=== PATIENT | female | born 1935 | race Caucasian/White ===

== ENCOUNTER 2021-07-10 15:42 | Inpatient (IN) | payer MEDICARE, BC ==
[2021-07-10] MEDS ORDERED: SODIUM CHLORIDE 0.9% 1,000 ML IV STA (16:08)
--- NOTE | 2021-07-10 16:16 | ED ---
General Adult HPI - General Chief complaint: Altered Mental Status Stated complaint: Dehydration Time Seen by Provider: 07/10/21 15:57 Source: patient, EMS, RN notes reviewed Mode of arrival: EMS Limitations: altered mental status - History of Present Illness Initial comments: This is a pleasant 85-year-old female who arrives via EMS. Patient essentially alert and oriented 1. Apparently the patient's son is in the ICU with COVID- 19. Patient was sent in by family for possible dehydration, general weakness, and altered mental status. Patient not complaining of any pain but tells me she did fall. Patient's paperwork stating that she was started on doxycycline and Mucinex by the visiting physicians. There also was a COVID-19 test done. [facility] if results have been obtained. According to EMS the patient had a initial oxygen saturation 91% on room air. Review of systems Limited due to patient being alert and oriented 1. Denies pain, denies shortness of breath, unsure whether she's been vaccinated against COVID-19. Patient is anticoagulation. - Related Data Home Medications Medication Instructions Recorded Confirmed Apixaban [Eliquis] 2.5 mg PO BID 07/10/21 07/10/21 Ascorbic Acid [Vitamin C] 250 mg PO DAILY 07/10/21 07/10/21 Aspirin EC [Ecotrin Low Dose] 81 mg PO DAILY 07/10/21 07/10/21 Calcium Carbonate/Vitamin D3 1 tab PO DAILY 07/10/21 07/10/21 [Calcium 600-D3 20 mcg (800 Unit)] Cholecalciferol [Vitamin D3 (25 50 mcg PO DAILY 07/10/21 07/10/21 Mcg = 1000 Iu)] Citalopram Hydrobromide [CeleXA] 20 mg PO DAILY 07/10/21 07/10/21 Cranberry Fruit Extract [Cranberry] 500 mg PO DAILY 07/10/21 07/10/21 Cyanocobalamin (Vitamin B-12) 1,000 mcg PO DAILY 07/10/21 07/10/21 [Vitamin B-12] Diltiazem Cd [Cardizem CD] 240 mg PO DAILY 07/10/21 07/10/21 Doxycycline Hyclate 100 mg PO BID 07/10/21 07/10/21 Furosemide [Lasix] 40 mg PO DAILY 07/10/21 07/10/21 Memantine [Namenda] 10 mg PO BID 07/10/21 07/10/21 Nystatin 100,000 Unit/gm Powd 1 applic TOPICAL BID 07/10/21 07/10/21 [Mycostatin Powder] Zinc 50 mg PO DAILY 07/10/21 07/10/21 Allergies Allergy/AdvReac Type Severity Reaction Status Date / Time No Known Allergies Allergy Verified 07/10/21 19:27 Review of Systems ROS Statement: Those systems with pertinent positive or pertinent negative responses have been documented in the HPI. ROS Other: All systems not noted in ROS Statement are negative. Past Medical History Past Medical History: Atrial Fibrillation Additional Past Medical History / Comment(s): buttock wound History of Any Multi-Drug Resistant Organisms: None Reported Past Psychological History: No Psychological Hx Reported Smoking Status: Unknown if ever smoked Past Alcohol Use History: None Reported Past Drug Use History: None Reported - Past Family History Father Family Medical History: Unable to Obtain Mother Family Medical History: Unable to Obtain General Exam - General Exam Comments Initial Comments: Deconditioned appearing 85-year-old female in no acute distress. Patient does not appear to be toxic. Alert and oriented 1. Creatinine is 2 through 12 are grossly intact. No evidence of focal neurologic deficit. Limitations: altered mental status General appearance: alert, in no apparent distress Head exam: Present: atraumatic, normocephalic, normal inspection Eye exam: Present: normal appearance, PERRL, EOMI. Absent: scleral icterus, conjunctival injection, periorbital swelling ENT exam: Present: normal oropharynx, mucous membranes moist. Absent: mucous membranes dry (Possibly mildly dry, however moisture still present.) Neck exam: Present: normal inspection. Absent: tenderness, meningismus, lymphadenopathy Respiratory exam: Present: normal lung sounds bilaterally. Absent: respiratory distress, wheezes, rales, rhonchi, stridor Cardiovascular Exam: Present: regular rate, normal rhythm, normal heart sounds. Absent: systolic murmur, diastolic murmur, rubs, gallop, clicks GI/Abdominal exam: Present: soft, normal bowel sounds. Absent: distended, tenderness, guarding, rebound, rigid Extremities exam: Present: normal inspection, full ROM, normal capillary refill. Absent: tenderness, pedal edema, joint swelling, calf tenderness Back exam: Present: normal inspection Neurological exam: Present: alert, CN II-XII intact, other (Alert and oriented 1, unsure if this patient's baseline.) Psychiatric exam: Present: normal affect, normal mood Skin exam: Present: warm, dry, intact, normal color, other (Stage II decubitus ulcer noted to the gluteal cleft area. No surrounding infection.). Absent: rash Course Vital Signs 07/10/21 07/10/21 07/10/21 15:54 17:00 18:00 Temperature 98.0 F 98.0 F 98.1 F Pulse Rate 80 82 89 Pulse Rate [ Pulse Oximetery ] Respiratory 20 20 20 Rate Blood Pressure 119/73 111/79 106/54 Blood Pressure [Right Arm] O2 Sat by Pulse 91 L 95 95 Oximetry 07/11/21 07/11/21 02:18 03:28 Temperature 97.6 F 96.8 F L Pulse Rate Pulse Rate [ 65 69 Pulse Oximetery ] Respiratory 17 16 Rate Blood Pressure Blood Pressure 128/84 124/75 [Right Arm] O2 Sat by Pulse 95 92 L Oximetry - Reevaluation(s) Reevaluation #1: 07/10/21 17:32 Medical record is reviewed Symptoms are unchanged. Patient oxygen saturation is 92% on room air as I'm in the room. No tachypnea. Discussed case in detail with the patient's family who state that they cannot take care of her at home as the patient's son who is a primary caregiver is admitted to the ICU here and although he is supposed be discharged he is generally weak and will be unable to care for the patient. Patient in no distress Reevaluation #2: 07/10/21 18:12 Workup shows COVID-19 with left lower lobe pneumonia and pleural effusion. EKG Findings - EKG Comments: EKG Findings:: Patient has no comparison study. - EKG Results: EKG: normal axis (Patient has evidence of T-wave inversion and plantar ST depression in the lateral precordial leads. Poor R-wave progression. Atrial fibrillation noted), normal QRS EKG shows: atrial fibrillation (Rate 96) Medical Decision Making - Medical Decision Making Patient presents with general weakness, exposure COVID-19. Patient alert and oriented 1. Unsure if this patient's baseline or not. We'll contact family. CT of the head ordered for suspected fall, patient age, on anticoagulation, per [place] CT rules. The patient is already on Apixaban and will not need further anticoagulation. Case was reviewed with ED attending physician. ED supervising physician is Dr. Scott. Discussed with the admitting physician, Dr. Oro. Patient treated for community acquired pneumonia. Positive for COVID-19. Oxygen saturation 91% on room air. - Lab Data Result diagrams: 07/11/21 05:45 07/11/21 05:45 Lab Results 07/10/21 07/10/21 07/10/21 Range/Units 16:17 16:17 16:17 WBC 5.2 (3.8-10.6) k/uL RBC 5.07 (3.80-5.40) m/uL Hgb 15.3 (11.4-16.0) gm/dL Hct 47.6 H (34.0-46.0) % MCV 93.9 (80.0-100.0) fL MCH 30.2 (25.0-35.0) pg MCHC 32.1 (31.0-37.0) g/dL RDW 13.6 (11.5-15.5) % Plt Count 143 L (150-450) k/uL Plt Count Comment MPV 11.5 Absolute Nucleated RBC (0.00-0.00) X 10*3/uL Neutrophils % 74 % Neutrophils % (Manual) % Lymphocytes % 17 % Lymphocytes % (Manual) % Monocytes % 6 % Monocytes % (Manual) % Eosinophils % 0 % Basophils % 0 % Basophils % (Manual) % Neutrophils # 3.9 (1.3-7.7) k/uL Neutrophils # (Manual) (2.00-8.90) X 10*3/uL Lymphocytes # 0.9 L (1.0-4.8) k/uL Lymphocytes # (Manual) (0.90-5.00) X 10*3/uL Monocytes # 0.3 (0-1.0) k/uL Monocytes # (Manual) (0.20-1.00) X 10*3/uL Eosinophils # 0.0 (0-0.7) k/uL Eosinophils # (Manual) (0.04-0.35) X 10*3/uL Basophils # 0.0 (0-0.2) k/uL Basophils # (Manual) (0.00-0.10) X 10*3/uL NRBC/100 WBC Diff (0.0-0.0) /100 WBCS Fibrinogen (200-500) mg/dL D-Dimer (<0.60) mg/L FEU Sodium 136 L (137-145) mmol/L Potassium 3.8 (3.5-5.1) mmol/L Chloride 105 (98-107) mmol/L Carbon Dioxide 23 (22-30) mmol/L Anion Gap 8 mmol/L BUN 24 H (7-17) mg/dL Creatinine 0.75 (0.52-1.04) mg/dL Est GFR (CKD-EPI)AfAm 83 (>60 ml/min/1.73 sqM) Est GFR (CKD-EPI)NonAf 72 (>60 ml/min/1.73 sqM) BUN/Creatinine Ratio (12.00-20.00) Ratio Glucose 114 H (74-99) mg/dL Plasma Lactic Acid Reed 0.9 (0.7-2.0) mmol/L Calcium 8.1 L (8.4-10.2) mg/dL Phosphorus 3.2 (2.5-4.5) mg/dL Magnesium 1.9 (1.6-2.3) mg/dL Ferritin (10.0-291.0) ng/mL Total Bilirubin 0.8 (0.2-1.3) mg/dL AST 28 (14-36) U/L ALT 12 (4-34) U/L Alkaline Phosphatase 85 (38-126) U/L Lactate Dehydrogenase (313-618) U/L Troponin I (0.000-0.034) ng/mL C-Reactive Protein (<1.0) mg/dL NT-Pro-B Natriuret Pep pg/mL Total Protein 6.2 L (6.3-8.2) g/dL Albumin 3.0 L (3.5-5.0) g/dL Globulin (1.6-3.3) g/dL Albumin/Globulin Ratio (1.60-3.17) g/dL Procalcitonin (0.02-0.09) ng/mL TSH 0.758 (0.465-4.680) mIU/L Urine Color Urine Appearance (Clear) Urine pH (5.0-8.0) Ur Specific [place] (1.001-1.035) Urine Protein (Negative) Urine Glucose (UA) (Negative) Urine Ketones (Negative) Urine Blood (Negative) Urine Nitrite (Negative) Urine Bilirubin (Negative) Urine Urobilinogen (<2.0) mg/dL Ur Leukocyte Esterase (Negative) Urine RBC (0-5) /hpf Urine WBC (0-5) /hpf Urine WBC Clumps (None) /hpf Ur Squamous Epith Cells (0-4) /hpf Urine Bacteria (None) /hpf Urine Mucus (None) /hpf Coronavirus (PCR) (Not Detectd) 07/10/21 07/10/21 07/10/21 Range/Units 16:17 16:17 18:50 WBC (3.8-10.6) k/uL RBC (3.80-5.40) m/uL Hgb (11.4-16.0) gm/dL Hct (34.0-46.0) % MCV (80.0-100.0) fL MCH (25.0-35.0) pg MCHC (31.0-37.0) g/dL RDW (11.5-15.5) % Plt Count (150-450) k/uL Plt Count Comment MPV Absolute Nucleated RBC (0.00-0.00) X 10*3/uL Neutrophils % % Neutrophils % (Manual) % Lymphocytes % % Lymphocytes % (Manual) % Monocytes % % Monocytes % (Manual) % Eosinophils % % Basophils % % Basophils % (Manual) % Neutrophils # (1.3-7.7) k/uL Neutrophils # (Manual) (2.00-8.90) X 10*3/uL Lymphocytes # (1.0-4.8) k/uL Lymphocytes # (Manual) (0.90-5.00) X 10*3/uL Monocytes # (0-1.0) k/uL Monocytes # (Manual) (0.20-1.00) X 10*3/uL Eosinophils # (0-0.7) k/uL Eosinophils # (Manual) (0.04-0.35) X 10*3/uL Basophils # (0-0.2) k/uL Basophils # (Manual) (0.00-0.10) X 10*3/uL NRBC/100 WBC Diff (0.0-0.0) /100 WBCS Fibrinogen 342 (200-500) mg/dL D-Dimer 2.08 H (<0.60) mg/L FEU Sodium (137-145) mmol/L Potassium (3.5-5.1) mmol/L Chloride (98-107) mmol/L Carbon Dioxide (22-30) mmol/L Anion Gap mmol/L BUN (7-17) mg/dL Creatinine (0.52-1.04) mg/dL Est GFR (CKD-EPI)AfAm (>60 ml/min/1.73 sqM) Est GFR (CKD-EPI)NonAf (>60 ml/min/1.73 sqM) BUN/Creatinine Ratio (12.00-20.00) Ratio Glucose (74-99) mg/dL Plasma Lactic Acid Reed (0.7-2.0) mmol/L Calcium (8.4-10.2) mg/dL Phosphorus (2.5-4.5) mg/dL Magnesium (1.6-2.3) mg/dL Ferritin (10.0-291.0) ng/mL Total Bilirubin (0.2-1.3) mg/dL AST (14-36) U/L ALT (4-34) U/L Alkaline Phosphatase (38-126) U/L Lactate Dehydrogenase (313-618) U/L Troponin I <0.012 (0.000-0.034) ng/mL C-Reactive Protein (<1.0) mg/dL NT-Pro-B Natriuret Pep pg/mL Total Protein (6.3-8.2) g/dL Albumin (3.5-5.0) g/dL Globulin (1.6-3.3) g/dL Albumin/Globulin Ratio (1.60-3.17) g/dL Procalcitonin (0.02-0.09) ng/mL TSH (0.465-4.680) mIU/L Urine Color Urine Appearance (Clear) Urine pH (5.0-8.0) Ur Specific [place] (1.001-1.035) Urine Protein (Negative) Urine Glucose (UA) (Negative) Urine Ketones (Negative) Urine Blood (Negative) Urine Nitrite (Negative) Urine Bilirubin (Negative) Urine Urobilinogen (<2.0) mg/dL Ur Leukocyte Esterase (Negative) Urine RBC (0-5) /hpf Urine WBC (0-5) /hpf Urine WBC Clumps (None) /hpf Ur Squamous Epith Cells (0-4) /hpf Urine Bacteria (None) /hpf Urine Mucus (None) /hpf Coronavirus (PCR) Detected A (Not Detectd) 07/10/21 07/10/21 07/10/21 Range/Units 18:50 18:50 18:50 WBC (3.8-10.6) k/uL RBC (3.80-5.40) m/uL Hgb (11.4-16.0) gm/dL Hct (34.0-46.0) % MCV (80.0-100.0) fL MCH (25.0-35.0) pg MCHC (31.0-37.0) g/dL RDW (11.5-15.5) % Plt Count (150-450) k/uL Plt Count Comment MPV Absolute Nucleated RBC (0.00-0.00) X 10*3/uL Neutrophils % % Neutrophils % (Manual) % Lymphocytes % % Lymphocytes % (Manual) % Monocytes % % Monocytes % (Manual) % Eosinophils % % Basophils % % Basophils % (Manual) % Neutrophils # (1.3-7.7) k/uL Neutrophils # (Manual) (2.00-8.90) X 10*3/uL Lymphocytes # (1.0-4.8) k/uL Lymphocytes # (Manual) (0.90-5.00) X 10*3/uL Monocytes # (0-1.0) k/uL Monocytes # (Manual) (0.20-1.00) X 10*3/uL Eosinophils # (0-0.7) k/uL Eosinophils # (Manual) (0.04-0.35) X 10*3/uL Basophils # (0-0.2) k/uL Basophils # (Manual) (0.00-0.10) X 10*3/uL NRBC/100 WBC Diff (0.0-0.0) /100 WBCS Fibrinogen (200-500) mg/dL D-Dimer (<0.60) mg/L FEU Sodium (137-145) mmol/L Potassium (3.5-5.1) mmol/L Chloride (98-107) mmol/L Carbon Dioxide (22-30) mmol/L Anion Gap mmol/L BUN (7-17) mg/dL Creatinine (0.52-1.04) mg/dL Est GFR (CKD-EPI)AfAm (>60 ml/min/1.73 sqM) Est GFR (CKD-EPI)NonAf (>60 ml/min/1.73 sqM) BUN/Creatinine Ratio (12.00-20.00) Ratio Glucose (74-99) mg/dL Plasma Lactic Acid Reed (0.7-2.0) mmol/L Calcium (8.4-10.2) mg/dL Phosphorus (2.5-4.5) mg/dL Magnesium (1.6-2.3) mg/dL Ferritin 384.0 H (10.0-291.0) ng/mL Total Bilirubin (0.2-1.3) mg/dL AST (14-36) U/L ALT (4-34) U/L Alkaline Phosphatase (38-126) U/L Lactate Dehydrogenase 602 (313-618) U/L Troponin I (0.000-0.034) ng/mL C-Reactive Protein 2.4 H (<1.0) mg/dL NT-Pro-B Natriuret Pep 2160 pg/mL Total Protein (6.3-8.2) g/dL Albumin (3.5-5.0) g/dL Globulin (1.6-3.3) g/dL Albumin/Globulin Ratio (1.60-3.17) g/dL Procalcitonin 0.04 (0.02-0.09) ng/mL TSH (0.465-4.680) mIU/L Urine Color Urine Appearance (Clear) Urine pH (5.0-8.0) Ur Specific [place] (1.001-1.035) Urine Protein (Negative) Urine Glucose (UA) (Negative) Urine Ketones (Negative) Urine Blood (Negative) Urine Nitrite (Negative) Urine Bilirubin (Negative) Urine Urobilinogen (<2.0) mg/dL Ur Leukocyte Esterase (Negative) Urine RBC (0-5) /hpf Urine WBC (0-5) /hpf Urine WBC Clumps (None) /hpf Ur Squamous Epith Cells (0-4) /hpf Urine Bacteria (None) /hpf Urine Mucus (None) /hpf Coronavirus (PCR) (Not Detectd) 07/10/21 07/11/21 07/11/21 Range/Units 20:15 05:45 05:45 WBC 2.99 L (3.8-10.6) k/uL RBC 4.68 (3.80-5.40) m/uL Hgb 13.8 (11.4-16.0) gm/dL Hct 43.5 (34.0-46.0) % MCV 92.9 (80.0-100.0) fL MCH 29.5 (25.0-35.0) pg MCHC 31.7 L (31.0-37.0) g/dL RDW 13.8 (11.5-15.5) % Plt Count 144 (150-450) k/uL Plt Count Comment Adequate MPV 13.6 H Absolute Nucleated RBC 0 (0.00-0.00) X 10*3/uL Neutrophils % % Neutrophils % (Manual) 92 % Lymphocytes % % Lymphocytes % (Manual) 6 % Monocytes % % Monocytes % (Manual) 2 % Eosinophils % % Basophils % % Basophils % (Manual) 0 % Neutrophils # (1.3-7.7) k/uL Neutrophils # (Manual) 2.75 (2.00-8.90) X 10*3/uL Lymphocytes # (1.0-4.8) k/uL Lymphocytes # (Manual) 0.18 L (0.90-5.00) X 10*3/uL Monocytes # (0-1.0) k/uL Monocytes # (Manual) 0.06 L (0.20-1.00) X 10*3/uL Eosinophils # (0-0.7) k/uL Eosinophils # (Manual) 0 L (0.04-0.35) X 10*3/uL Basophils # (0-0.2) k/uL Basophils # (Manual) 0 (0.00-0.10) X 10*3/uL NRBC/100 WBC Diff 0 (0.0-0.0) /100 WBCS Fibrinogen (200-500) mg/dL D-Dimer (<0.60) mg/L FEU Sodium 141 (137-145) mmol/L Potassium 4.0 (3.5-5.1) mmol/L Chloride 106 (98-107) mmol/L Carbon Dioxide 23.4 (22-30) mmol/L Anion Gap 11.60 mmol/L BUN 17.3 (7-17) mg/dL Creatinine 0.8 (0.52-1.04) mg/dL Est GFR (CKD-EPI)AfAm 76.8 (>60 ml/min/1.73 sqM) Est GFR (CKD-EPI)NonAf 66.3 (>60 ml/min/1.73 sqM) BUN/Creatinine Ratio 21.63 H (12.00-20.00) Ratio Glucose 150 H (74-99) mg/dL Plasma Lactic Acid Reed (0.7-2.0) mmol/L Calcium 8.0 L (8.4-10.2) mg/dL Phosphorus (2.5-4.5) mg/dL Magnesium 2.1 (1.6-2.3) mg/dL Ferritin (10.0-291.0) ng/mL Total Bilirubin 0.30 (0.2-1.3) mg/dL AST 16 (14-36) U/L ALT 10 (4-34) U/L Alkaline Phosphatase 80 (38-126) U/L Lactate Dehydrogenase (313-618) U/L Troponin I (0.000-0.034) ng/mL C-Reactive Protein (<1.0) mg/dL NT-Pro-B Natriuret Pep pg/mL Total Protein 5.5 L (6.3-8.2) g/dL Albumin 2.8 L (3.5-5.0) g/dL Globulin 2.7 (1.6-3.3) g/dL Albumin/Globulin Ratio 1.04 L (1.60-3.17) g/dL Procalcitonin (0.02-0.09) ng/mL TSH (0.465-4.680) mIU/L Urine Color Yellow Urine Appearance Turbid H (Clear) Urine pH 7.5 (5.0-8.0) Ur Specific [place] 1.010 (1.001-1.035) Urine Protein 2+ H (Negative) Urine Glucose (UA) Negative (Negative) Urine Ketones Negative (Negative) Urine Blood Large H (Negative) Urine Nitrite Negative (Negative) Urine Bilirubin Negative (Negative) Urine Urobilinogen <2.0 (<2.0) mg/dL Ur Leukocyte Esterase Large H (Negative) Urine RBC >182 H (0-5) /hpf Urine WBC >182 H (0-5) /hpf Urine WBC Clumps Many H (None) /hpf Ur Squamous Epith Cells <1 (0-4) /hpf Urine Bacteria Many H (None) /hpf Urine Mucus Rare H (None) /hpf Coronavirus (PCR) (Not Detectd) 07/11/21 Range/Units 05:45 WBC (3.8-10.6) k/uL RBC (3.80-5.40) m/uL Hgb (11.4-16.0) gm/dL Hct (34.0-46.0) % MCV (80.0-100.0) fL MCH (25.0-35.0) pg MCHC (31.0-37.0) g/dL RDW (11.5-15.5) % Plt Count (150-450) k/uL Plt Count Comment MPV Absolute Nucleated RBC (0.00-0.00) X 10*3/uL Neutrophils % % Neutrophils % (Manual) % Lymphocytes % % Lymphocytes % (Manual) % Monocytes % % Monocytes % (Manual) % Eosinophils % % Basophils % % Basophils % (Manual) % Neutrophils # (1.3-7.7) k/uL Neutrophils # (Manual) (2.00-8.90) X 10*3/uL Lymphocytes # (1.0-4.8) k/uL Lymphocytes # (Manual) (0.90-5.00) X 10*3/uL Monocytes # (0-1.0) k/uL Monocytes # (Manual) (0.20-1.00) X 10*3/uL Eosinophils # (0-0.7) k/uL Eosinophils # (Manual) (0.04-0.35) X 10*3/uL Basophils # (0-0.2) k/uL Basophils # (Manual) (0.00-0.10) X 10*3/uL NRBC/100 WBC Diff (0.0-0.0) /100 WBCS Fibrinogen (200-500) mg/dL D-Dimer (<0.60) mg/L FEU Sodium (137-145) mmol/L Potassium (3.5-5.1) mmol/L Chloride (98-107) mmol/L Carbon Dioxide (22-30) mmol/L Anion Gap mmol/L BUN (7-17) mg/dL Creatinine (0.52-1.04) mg/dL Est GFR (CKD-EPI)AfAm (>60 ml/min/1.73 sqM) Est GFR (CKD-EPI)NonAf (>60 ml/min/1.73 sqM) BUN/Creatinine Ratio (12.00-20.00) Ratio Glucose (74-99) mg/dL Plasma Lactic Acid Reed (0.7-2.0) mmol/L Calcium (8.4-10.2) mg/dL Phosphorus (2.5-4.5) mg/dL Magnesium (1.6-2.3) mg/dL Ferritin (10.0-291.0) ng/mL Total Bilirubin (0.2-1.3) mg/dL AST (14-36) U/L ALT (4-34) U/L Alkaline Phosphatase (38-126) U/L Lactate Dehydrogenase (313-618) U/L Troponin I <0.012 (0.000-0.034) ng/mL C-Reactive Protein (<1.0) mg/dL NT-Pro-B Natriuret Pep pg/mL Total Protein (6.3-8.2) g/dL Albumin (3.5-5.0) g/dL Globulin (1.6-3.3) g/dL Albumin/Globulin Ratio (1.60-3.17) g/dL Procalcitonin (0.02-0.09) ng/mL TSH (0.465-4.680) mIU/L Urine Color Urine Appearance (Clear) Urine pH (5.0-8.0) Ur Specific [place] (1.001-1.035) Urine Protein (Negative) Urine Glucose (UA) (Negative) Urine Ketones (Negative) Urine Blood (Negative) Urine Nitrite (Negative) Urine Bilirubin (Negative) Urine Urobilinogen (<2.0) mg/dL Ur Leukocyte Esterase (Negative) Urine RBC (0-5) /hpf Urine WBC (0-5) /hpf Urine WBC Clumps (None) /hpf Ur Squamous Epith Cells (0-4) /hpf Urine Bacteria (None) /hpf Urine Mucus (None) /hpf Coronavirus (PCR) (Not Detectd) Disposition Clinical Impression: COVID-19, Left lower lobe pneumonia, Hypoxemia, Debilitated patient Disposition: ADMITTED IP TO THIS [facility] Condition: Fair Decision to Admit Reason: Admit from EC Decision Time: 18:13
[2021-07-10 16:39] LABS: Calcium 8.1 mg/dL (8.4-10.2); Magnesium 1.9 mg/dL (1.6-2.3); Phosphorus 3.2 mg/dL (2.5-4.5); Total Bilirubin 0.8 mg/dL (0.2-1.3); Total Protein 6.2 g/dL (6.3-8.2)
[2021-07-10 16:40] LABS: Potassium 3.8 mmol/L (3.5-5.1)
[2021-07-10 16:42] LABS: Basophils % (A) 0 %; Eosinophils % (A) 0 %; HCT 47.6 % (34.0-46.0); HGB 15.3 gm/dL (11.4-16.0); Lymphocytes # (A) 0.9 k/uL (1.0-4.8); Lymphocytes % (A) 17 %; MCH 30.2 pg (25.0-35.0); MCHC 32.1 g/dL (31.0-37.0); MCV 93.9 fL (80.0-100.0); Mean Platelet Volume 11.5; Monocytes # (A) 0.3 k/uL (0-1.0); Monocytes % (A) 6 %; Neutrophils # (A) 3.9 k/uL (1.3-7.7); Neutrophils % (A) 74 %; RBC 5.07 m/uL (3.80-5.40); RDW 13.6 % (11.5-15.5); WBC 5.2 k/uL (3.8-10.6)
[2021-07-10] MEDS ORDERED: DEXAMETHASONE SOD PHOSPHATE 10 MG/ML 1 ML VIAL IVP STA (17:26)
[2021-07-10 17:38] LABS: Platelet Count 143 k/uL (150-450)
--- NOTE | 2021-07-10 17:47 | XR ---
EXAMINATION TYPE: XR chest 1V portable DATE OF EXAM: 07/10/2021 COMPARISON: NONE HISTORY: Weakness TECHNIQUE: Single view FINDINGS: There is consolidation left lower lobe with blunting left costophrenic angle. Right lung is clear. No heart failure seen. There is left axillary pacemaker. IMPRESSION: Left pleural effusion and left lower lobe pneumonia. No obvious heart failure.
--- NOTE | 2021-07-10 17:49 | CT ---
EXAMINATION TYPE: CT brain laura lan DATE OF EXAM: 07/10/2021 COMPARISON: None HISTORY: Altered mental status CT DLP: 1488.3 mGycm Automated exposure control for dose reduction was used. Images obtained of the brain and cervical spine without contrast. Cervical vertebrae are normal alignment. There is some degenerative disc space narrowing at C4-5 and C5-6 and C6-7 with spurring of the endplates. The posterior elements are intact. There is diffuse cerebral cortical atrophy. There is hypodensity in the periventricular white matter. There is no mass effect or midline shift. There is no sign of intracranial hemorrhage. Skull base is intact. There is normal aeration of the mastoid sinuses. Calvarium is intact. IMPRESSION: Cerebral atrophy and chronic small vessel ischemia. No acute intracranial abnormality. Cervical mild spondylotic changes. No fracture seen. Left pleural effusion noted.
[2021-07-10] MEDS ORDERED: PNEUMONIA PROTOCOL UTILIZED 1 EACH MISC PO PRN (18:13)
[2021-07-10] MEDS ORDERED: AZITHROMYCIN 500 MG in SODIUM CHLORIDE 0.9% 250 ML IVPB STA (18:13)
[2021-07-10] MEDS ORDERED: ALBUTEROL HFA INHALER INHALATION PRN (18:45)
[2021-07-10] MEDS ORDERED: NALOXONE 0.4 MG/ML 1 ML VIAL IV PRN (18:53)
[2021-07-10 19:18] LABS: C Reactive Protein 2.4 mg/dL (<1.0)
[2021-07-10 20:32] LABS: Appearance,Urine Turbid (Clear); Bacteria,Urine Many /hpf; Bilirubin,Urine Negative (Negative); Blood,Urine Large (Negative); Color,Urine Yellow; Glucose,Urine (UA) Negative (Negative); Ketones,Urine Negative (Negative); Leukocyte Esterase,Urine Large (Negative); Mucus,Urine Rare /hpf; Nitrite,Urine Negative (Negative); PH, Urine 7.5 (5.0-8.0); Protein,Urine 2+ (Negative); RBC,Urine >182 /hpf (0-5); Squamous Epithelial Cell,Urine <1 /hpf (0-4); Urobilinogen,Urine <2.0 mg/dL (<2.0); WBC,Urine >182 /hpf (0-5)
[2021-07-10] MEDS: APIXABAN 5 MG TAB PO SCH (22:01)
[2021-07-11] MEDS: MEMANTINE 10 MG TAB PO SCH ×3 (03:52→21:50)
[2021-07-11] MEDS: ZINC SULFATE 220 MG CAP PO SCH ×2 (03:52→10:16)
[2021-07-11] MEDS ORDERED: NON FORMULARY DRUG (Cranberry Fruit Extract [Cranberry] 500 MG Tablet) PO SCH (09:00)
[2021-07-11] MEDS ORDERED: DEXAMETHASONE SOD PHOSPHATE 10 MG/ML 1 ML VIAL IV SCH (09:00)
[2021-07-11 09:46] LABS: Magnesium 2.1 mg/dL (1.5-2.4)
[2021-07-11 09:47] LABS: African American GFR (CKD) 76.8 (60.0-200.0); Albumin 2.8 g/dL (3.8-4.9); Albumin/Globulin Ratio 1.04 (1.60-3.17); Anion Gap 11.6 mmol/L (10.00-18.00); BUN/Creat Ratio 21.63 Ratio (12.00-20.00); Blood Urea Nitrogen 17.3 mg/dL (9.0-27.0); Carbon Dioxide 23.4 mmol/L (20.0-27.5); Globulin 2.7 g/dL (1.6-3.3); Non-African American GFR(CKD) 66.3 (60.0-200.0); Total Bilirubin 0.3 mg/dL (0.30-1.20); Total Protein 5.5 g/dL (6.2-8.2)
[2021-07-11] MEDS: ASCORBIC ACID 500 MG TAB PO SCH (10:15)
[2021-07-11] MEDS: CYANOCOBALAMIN 500 MCG TAB PO SCH (10:15)
[2021-07-11] MEDS: ASPIRIN 81 MG PO SCH (10:16)
[2021-07-11] MEDS: CITALOPRAM HYDROBROMIDE 20 MG TAB PO SCH (10:16)
[2021-07-11] MEDS: APIXABAN 5 MG TAB PO SCH ×2 (10:16→21:50)
[2021-07-11] MEDS: CHOLECALCIFEROL 25 MCG (1000 IU) TABLET PO SCH (10:16)
[2021-07-11] MEDS: CALCIUM CARB-VIT D 500 MG-5 MCG TAB PO SCH (10:16)
[2021-07-11 11:00] LABS: HCT 43.5 % (37.2-46.3); HGB 13.8 g/dL (12.0-15.0); MCH 29.5 pg (27.0-32.0); MCHC 31.7 g/dL (32.0-37.0); MCV 92.9 fL (80.0-97.0); Mean Platelet Volume 13.6 fL (9.5-12.2); NRBC Per 100 WBC 0 /100 WBCS (0.0-0.0); Platelet Count 144 X 10*3/uL (140-440); RBC 4.68 X 10*6/uL (4.10-5.20); RDW 13.8 % (11.5-14.5); WBC 2.99 X 10*3/uL (4.50-10.00)
[2021-07-11 11:01] LABS: Basophils # (M) 0 X 10*3/uL (0.00-0.10); Eosinophils # (M) 0 X 10*3/uL (0.04-0.35); Lymphocytes # (M) 0.18 X 10*3/uL (0.90-5.00); Monocytes # (M) 0.06 X 10*3/uL (0.20-1.00); Neutrophils # (M) 2.75 X 10*3/uL (2.00-8.90); Neutrophils % (M) 92 %
[2021-07-11] MEDS: NYSTATIN 100,000 UNIT/GM POWD 15 GM TOPICAL SCH ×2 (11:55→21:50)
[2021-07-11] MEDS: DEXTROSE 5%-0.45% NACL 1,000 ML IV SCH (13:38)
--- NOTE | 2021-07-11 21:06 | P.HPIM ---
History of Present Illness H&P Date: 07/11/21 Chief Complaint: Weakness This is a 85-year-old patient, follows with visiting physicians Dr. Calle. Patient was sent in by the family for dehydration generalized weakness altered mental status. She was started on doxycycline and Mucinex by her visiting doctor. Initial pulse ox was 91%. Patient did test positive for COVID. Also UA was positive. Patient is rather lethargic. She is able to return her name. Is moving all her limbs. Review of systems cannot be obtained as patient rather lethargic. Past medical history to include: Atrial fibrillation, but the wound, dementia, depression Social history: Patient lives with her son Deven. Wheelchair bound. Private hired caregiver. No history of smoking alcohol reported Family history: Patient cannot tell Physical examination: VITAL SIGNS: 98, 80, 20, 119/73, 91% room air GENERAL: BMI 22.6, laying in bed l tired lethargic. EYES: Pupils equal. Conjunctiva normal. HEENT: External appearance of nose and ears normal, oral cavity dry mucous membranes. NECK: JVD unable to assess; masses not palpable. HEART: First and second heart sounds are normal; no edema. LUNGS: Respiratory rate increased; decreased breath sounds. ABDOMEN: Soft, nontender, liver spleen not palpable, no masses palpable. PSYCH: Patient only tell her name.l. MUSCULOSKELETAL:No Clubbing/cyanosis;muscles-grossly intact. Evidence of OA NEUROLOGICAL: [Cranial nerves grossly intact; no facial asymmetry, moving all limbs LYMPHATICS: No lymph nodes palpable in the axilla and neck INVESTIGATIONS, reviewed in the clinical context: White count 2.99 hemoglobin 13.8 platelets 144 sodium 141 potassium 4 creatinine 0.8 Albumin 2.8 pro-calcitonin 0.0 for T8 since 0.758 UA positive for leukoesterase WBC bacteria Coronavirus [PCR]: Detected EKG tracing personally reviewed by me-atrial flutter fibrillation rate 96 Chest x-ray film personally reviewed by [id number] pneumonia/infiltrate CT brain/C-spine: Without contrast: Cerebral atrophy and chronic small vessel changes. Assessment and plan: -Left-sided pneumonia with pleural effusion Ceftriaxone 1 g every 12 -COVID-19 Dexamethasone 6 g. -Advance cognitive impairment from underlying Alzheimer's dementia Namenda, -Acute UTI with cystitis IV ceftriaxone -Depression In the setting of severe dementia will DC Celexa -Persistent atrial fibrillation, rate controlled Cardizem CD 240 mg a day, eliquis 2.5 mg by mouth twice a day -Vitamin B-12 deficiency B thousand micrograms a day -Acute on chronic medical debility. Fall precautions. PT OT. In view of decreased oral intake. DC Lasix. Resume home medications. IV ceftriaxone. Fall precautions. PT OT. Discharge planning. Prognosis guarded. Gentle hydration Past Medical History Past Medical History: Atrial Fibrillation Additional Past Medical History / Comment(s): buttock wound History of Any Multi-Drug Resistant Organisms: None Reported Past Anesthesia/Blood Transfusion Reactions: No Reported Reaction Past Psychological History: No Psychological Hx Reported Smoking Status: Unknown if ever smoked Past Alcohol Use History: None Reported Past Drug Use History: None Reported - Past Family History Father Family Medical History: Unable to Obtain Mother Family Medical History: Unable to Obtain Medications and Allergies Home Medications Medication Instructions Recorded Confirmed Type Apixaban [Eliquis] 2.5 mg PO BID 07/10/21 07/10/21 History Ascorbic Acid [Vitamin C] 250 mg PO DAILY 07/10/21 07/10/21 History Aspirin EC [Ecotrin Low Dose] 81 mg PO DAILY 07/10/21 07/10/21 History Calcium Carbonate/Vitamin D3 1 tab PO DAILY 07/10/21 07/10/21 History [Calcium 600-D3 20 mcg (800 Unit)] Cholecalciferol [Vitamin D3 (25 50 mcg PO DAILY 07/10/21 07/10/21 History Mcg = 1000 Iu)] Citalopram Hydrobromide [CeleXA] 20 mg PO DAILY 07/10/21 07/10/21 History Cranberry Fruit Extract [Cranberry] 500 mg PO DAILY 07/10/21 07/10/21 History Cyanocobalamin (Vitamin B-12) 1,000 mcg PO DAILY 07/10/21 07/10/21 History [Vitamin B-12] Diltiazem Cd [Cardizem CD] 240 mg PO DAILY 07/10/21 07/10/21 History Doxycycline Hyclate 100 mg PO BID 07/10/21 07/10/21 History Furosemide [Lasix] 40 mg PO DAILY 07/10/21 07/10/21 History Memantine [Namenda] 10 mg PO BID 07/10/21 07/10/21 History Nystatin 100,000 Unit/gm Powd 1 applic TOPICAL BID 07/10/21 07/10/21 History [Mycostatin Powder] Zinc 50 mg PO DAILY 07/10/21 07/10/21 History Allergies Allergy/AdvReac Type Severity Reaction Status Date / Time No Known Allergies Allergy Verified 07/10/21 19:27 Physical Exam Vitals: Vital Signs Temp Pulse Pulse Resp BP BP Pulse Ox 07/11/21 08:00 97.7 F 99 18 159/81 93 L 07/11/21 03:28 96.8 F L 69 16 124/75 92 L 07/11/21 02:18 97.6 F 65 17 128/84 95 07/10/21 18:00 98.1 F 89 20 106/54 95 07/10/21 17:00 98.0 F 82 20 111/79 95 07/10/21 15:54 98.0 F 80 20 119/73 91 L Intake and Output 07/10/21 07/11/21 07/11/21 22:59 06:59 14:59 Output Total 350 Balance -350 Output: Urine 350 Other: Voiding Method Indwelling Catheter Indwelling Catheter Weight 63.503 kg 63.503 kg Results CBC & Chem 7: 07/11/21 05:45 07/11/21 05:45 Labs: Abnormal Lab Results - Last 24 Hours (Table) 07/10/21 07/10/21 07/10/21 Range/Units 16:17 16:17 16:17 Hct 47.6 H (34.0-46.0) % Plt Count 143 L (150-450) k/uL Lymphocytes # 0.9 L (1.0-4.8) k/uL D-Dimer (<0.60) mg/L FEU Sodium 136 L (137-145) mmol/L BUN 24 H (7-17) mg/dL BUN/Creatinine Ratio (12.00-20.00) Ratio Glucose 114 H (74-99) mg/dL Calcium 8.1 L (8.4-10.2) mg/dL C-Reactive Protein (<1.0) mg/dL Total Protein 6.2 L (6.3-8.2) g/dL Albumin 3.0 L (3.5-5.0) g/dL Albumin/Globulin Ratio (1.60-3.17) g/dL Urine Appearance (Clear) Urine Protein (Negative) Urine Blood (Negative) Ur Leukocyte Esterase (Negative) Urine RBC (0-5) /hpf Urine WBC (0-5) /hpf Urine WBC Clumps (None) /hpf Urine Bacteria (None) /hpf Urine Mucus (None) /hpf Coronavirus (PCR) Detected A (Not Detectd) 07/10/21 07/10/21 07/10/21 Range/Units 18:50 18:50 20:15 Hct (34.0-46.0) % Plt Count (150-450) k/uL Lymphocytes # (1.0-4.8) k/uL D-Dimer 2.08 H (<0.60) mg/L FEU Sodium (137-145) mmol/L BUN (7-17) mg/dL BUN/Creatinine Ratio (12.00-20.00) Ratio Glucose (74-99) mg/dL Calcium (8.4-10.2) mg/dL C-Reactive Protein 2.4 H (<1.0) mg/dL Total Protein (6.3-8.2) g/dL Albumin (3.5-5.0) g/dL Albumin/Globulin Ratio (1.60-3.17) g/dL Urine Appearance Turbid H (Clear) Urine Protein 2+ H (Negative) Urine Blood Large H (Negative) Ur Leukocyte Esterase Large H (Negative) Urine RBC >182 H (0-5) /hpf Urine WBC >182 H (0-5) /hpf Urine WBC Clumps Many H (None) /hpf Urine Bacteria Many H (None) /hpf Urine Mucus Rare H (None) /hpf Coronavirus (PCR) (Not Detectd) 07/11/21 Range/Units 05:45 Hct (34.0-46.0) % Plt Count (150-450) k/uL Lymphocytes # (1.0-4.8) k/uL D-Dimer (<0.60) mg/L FEU Sodium (137-145) mmol/L BUN (7-17) mg/dL BUN/Creatinine Ratio 21.63 H (12.00-20.00) Ratio Glucose 150 H (74-99) mg/dL Calcium 8.0 L (8.4-10.2) mg/dL C-Reactive Protein (<1.0) mg/dL Total Protein 5.5 L (6.3-8.2) g/dL Albumin 2.8 L (3.5-5.0) g/dL Albumin/Globulin Ratio 1.04 L (1.60-3.17) g/dL Urine Appearance (Clear) Urine Protein (Negative) Urine Blood (Negative) Ur Leukocyte Esterase (Negative) Urine RBC (0-5) /hpf Urine WBC (0-5) /hpf Urine WBC Clumps (None) /hpf Urine Bacteria (None) /hpf Urine Mucus (None) /hpf Coronavirus (PCR) (Not Detectd) Microbiology - Last 24 Hours (Table) 07/10/21 20:15 Urine Culture - Preliminary Urine,Voided Thrombosis Risk Factor Assmnt - Choose All That Apply Any of the Below Risk Factors Present?: No Other Risk Factors: Yes Each Risk Factor Represents 3 Points: Age 75 years or older Other congenital or acquired thrombophilia - If yes, enter type in comment: No Thrombosis Risk Factor Assessment Total Risk Factor Score: 3 Thrombosis Risk Factor Assessment Level: Moderate Risk
[2021-07-12] MEDS: DEXTROSE 5%-0.45% NACL 1,000 ML IV SCH ×2 (06:45→14:23)
[2021-07-12] MEDS: CYANOCOBALAMIN 500 MCG TAB PO SCH (08:00)
[2021-07-12] MEDS: MEMANTINE 10 MG TAB PO SCH ×2 (08:00→22:25)
[2021-07-12] MEDS: CITALOPRAM HYDROBROMIDE 20 MG TAB PO SCH (08:00)
[2021-07-12] MEDS: APIXABAN 5 MG TAB PO SCH ×2 (08:00→22:25)
[2021-07-12] MEDS: dexAMETHasone 2 MG TAB PO SCH (08:01)
[2021-07-12] MEDS: CHOLECALCIFEROL 25 MCG (1000 IU) TABLET PO SCH (08:01)
[2021-07-12] MEDS: CALCIUM CARB-VIT D 500 MG-5 MCG TAB PO SCH (08:01)
[2021-07-12] MEDS: ASPIRIN 81 MG PO SCH (08:01)
[2021-07-12] MEDS: ASCORBIC ACID 500 MG TAB PO SCH (08:01)
[2021-07-12] MEDS: NYSTATIN 100,000 UNIT/GM POWD 15 GM TOPICAL SCH ×2 (08:03→22:25)
[2021-07-12] MEDS: ZINC SULFATE 220 MG CAP PO SCH (08:03)
[2021-07-12 09:19] LABS: Albumin 2.8 g/dL (3.8-4.9); Albumin/Globulin Ratio 1.08 (1.60-3.17); Anion Gap 9.8 mmol/L (10.00-18.00); BUN/Creat Ratio 30.17 Ratio (12.00-20.00); Blood Urea Nitrogen 18.1 mg/dL (9.0-27.0); Calcium 8.1 mg/dL (8.7-10.3); Carbon Dioxide 20.2 mmol/L (20.0-27.5); Globulin 2.6 g/dL (1.6-3.3); Magnesium 2.2 mg/dL (1.5-2.4); Potassium 3.7 mmol/L (3.5-5.5); Total Bilirubin 0.3 mg/dL (0.30-1.20); Total Protein 5.4 g/dL (6.2-8.2)
[2021-07-12 10:03] LABS: Basophils # (A) 0.02 X 10*3/uL (0.00-0.10); Basophils % (A) 0.3 %; Eosinophils # (A) 0 X 10*3/uL (0.04-0.35); Eosinophils % (A) 0 %; HCT 45.9 % (37.2-46.3); HGB 14.6 g/dL (12.0-15.0); Immature Grans, Automated 0.8 %; Lymphocytes # (A) 0.85 X 10*3/uL (0.90-5.00); Lymphocytes % (A) 11.8 %; MCH 29.4 pg (27.0-32.0); MCHC 31.8 g/dL (32.0-37.0); MCV 92.5 fL (80.0-97.0); Mean Platelet Volume 13.7 fL (9.5-12.2); Monocytes # (A) 0.47 X 10*3/uL (0.20-1.00); Monocytes % (A) 6.5 %; NRBC Per 100 WBC 0 /100 WBCS (0.0-0.0); Neutrophils # (A) 5.78 X 10*3/uL (1.80-7.70); Neutrophils % (A) 80.6 %; Platelet Count 180 X 10*3/uL (140-440); RBC 4.96 X 10*6/uL (4.10-5.20); RDW 13.4 % (11.5-14.5); WBC 7.18 X 10*3/uL (4.50-10.00)
--- NOTE | 2021-07-12 17:30 | P.PN ---
Progress Note - Text Progress Note Date: 07/12/21 Chief Complaint: Weakness This is a 85-year-old patient, follows with visiting physicians Dr. Calle. Patient was sent in by the family for dehydration generalized weakness altered mental status. She was started on doxycycline and Mucinex by her visiting doctor. Initial pulse ox was 91%. Patient did test positive for COVID. Also UA was positive. Patient is rather lethargic. She is able to return her name. Is moving all her limbs. Admitted with left-sided pneumonia, pleural effusion, COVID-19, acute UTI with cystitis. Started on IV ceftriaxone, dexamethasone, IV fluids. July 12: Patient more awake today. Ate some Food with assistance. A bit less Short of breath. Active Medications Acetaminophen (Acetaminophen Tab 325 Mg Tab) 650 mg PO Q4HR PRN PRN Reason: Fever>101 Albuterol Sulfate (Albuterol Hfa Inhaler) 2 puff INHALATION RT-Q6H PRN PRN Reason: Shortness Of Breath Or Wheezing Apixaban (Apixaban 5 Mg Tab) 5 mg PO BID [facility]; Protocol Last Admin: 07/12/21 08:00 Dose: 5 mg Documented by: Ascorbic Acid (Ascorbic Acid 500 Mg Tab) 500 mg PO DAILY [facility] Last Admin: 07/12/21 08:01 Dose: 500 mg Documented by: Aspirin (Aspirin 81 Mg) 81 mg PO DAILY [facility] Last Admin: 07/12/21 08:01 Dose: 81 mg Documented by: Calcium Carbonate (Calcium Carb-Vit D 500 Mg-5 Mcg Tab) 1 each PO DAILY [facility] Last Admin: 07/12/21 08:01 Dose: 1 each Documented by: Cholecalciferol (Cholecalciferol 25 Mcg (1000 Iu) Tablet) 50 mcg PO DAILY [facility] Last Admin: 07/12/21 08:01 Dose: 50 mcg Documented by: Citalopram Hydrobromide (Citalopram Hydrobromide 20 Mg Tab) 20 mg PO DAILY [facility] Last Admin: 07/12/21 08:00 Dose: 20 mg Documented by: Cyanocobalamin (Cyanocobalamin 500 Mcg Tab) 1,000 mcg PO DAILY [facility] Last Admin: 07/12/21 08:00 Dose: 1,000 mcg Documented by: Dexamethasone (Dexamethasone 2 Mg Tab) 6 mg PO DAILY [facility] Last Admin: 07/12/21 08:01 Dose: 6 mg Documented by: Ceftriaxone Sodium 1 gm/ (Sodium Chloride) 50 mls @ 100 mls/hr IVPB Q12HR [facility] Last Admin: 07/12/21 08:01 Dose: 100 mls/hr Documented by: Dextrose/Sodium Chloride (Dextrose 5%-1/2ns Iv Soln) 1,000 mls @ 75 mls/hr IV .[id number] [facility] Last Admin: 07/12/21 14:23 Dose: 75 mls/hr Documented by: Memantine (Memantine 10 Mg Tab) 10 mg PO BID [facility] Last Admin: 07/12/21 08:00 Dose: 10 mg Documented by: Miscellaneous Information (Pneumonia Protocol Utilized 1 Each Misc) 1 each PO ONCE PRN PRN Reason: Per Protocol Naloxone HCl (Naloxone 0.4 Mg/Ml 1 Ml Vial) 0.2 mg IV Q2M PRN PRN Reason: Opioid Reversal Nystatin (Nystatin 100,000 Unit/Gm Powd 15 Gm) 1 applic TOPICAL BID [facility]; Protocol Last Admin: 07/12/21 08:03 Dose: 1 applic Documented by: Zinc Sulfate (Zinc Sulfate 220 Mg Cap) 220 mg PO DAILY [facility] Last Admin: 07/12/21 08:03 Dose: 220 mg Documented by: Past medical history to include: Atrial fibrillation, but the wound, dementia, depression Social history: Patient lives with her son Deven. Wheelchair bound. Private hired caregiver. No history of smoking alcohol reported Family history: Patient cannot tell Physical examination: VITAL SIGNS: 97.7, 71, 16, 140/92, 97% on 2 L GENERAL: Reclining in bed, a bit more awake tired answering simple questions EYES: Pupils equal. Conjunctiva normal. HEENT: External appearance of nose and ears normal, oral cavity dry mucous membranes. NECK: JVD unable to assess; masses not palpable. HEART: First and second heart sounds are normal; no edema. LUNGS: Respiratory rate increased; decreased breath sounds. ABDOMEN: Soft, nontender, liver spleen not palpable, no masses palpable. PSYCH: Denies only simple questions. MUSCULOSKELETAL:No Clubbing/cyanosis;muscles-grossly intact. Evidence of OA NEUROLOGICAL: [Cranial nerves grossly intact; no facial asymmetry, moving all limbs INVESTIGATIONS, reviewed in the clinical context: July 12: White count 7.18 hemoglobin 14.6 d-dimer 2.12 potassium 3.7 creatinine 0.6 Urine culture: Croup D enterococcus White count 2.99 hemoglobin 13.8 platelets 144 sodium 141 potassium 4 creatinine 0.8 Albumin 2.8 pro-calcitonin 0.0 for T8 since 0.758 UA positive for leukoesterase WBC bacteria Coronavirus [PCR]: Detected EKG tracing personally reviewed by me-atrial flutter fibrillation rate 96 Chest x-ray film personally reviewed by [id number]-acjht pneumonia/infiltrate CT brain/C-spine: Without contrast: Cerebral atrophy and chronic small vessel changes. Assessment and plan: -Left-sided pneumonia with pleural effusion: Slow to respond Ceftriaxone 1 g every 12 -COVID-19 Dexamethasone 6 g. -Advance cognitive impairment from underlying Alzheimer's dementia Namenda, -Acute UTI with cystitis, from group D enterococcus Augmentin -Depression In the setting of severe dementia will DC Celexa -Persistent atrial fibrillation, rate controlled Cardizem CD 240 mg a day, eliquis 2.5 mg by mouth twice a day -Vitamin B-12 deficiency B thousand micrograms a day -Acute on chronic medical debility. Fall precautions. PT OT. Augmentin. IV ceftriaxone. Gentle hydration. Other medications to continue. Consult pulmonary.
[2021-07-12] MEDS: AMOXIC-POT CLAV 875-125MG 1 EACH TAB PO SCH (22:36)
[2021-07-13 03:18] LABS: HGB 15.2 gm/dL (11.4-16.0); MCH 30.5 pg (25.0-35.0); MCHC 32.2 g/dL (31.0-37.0); MCV 94.8 fL (80.0-100.0); Mean Platelet Volume 11.2; Platelet Count 203 k/uL (150-450); RBC 4.96 m/uL (3.80-5.40); RDW 13.5 % (11.5-15.5)
[2021-07-13] MEDS: DEXTROSE 5%-0.45% NACL 1,000 ML IV SCH ×2 (06:18→16:53)
[2021-07-13] MEDS: AMOXIC-POT CLAV 875-125MG 1 EACH TAB PO SCH ×2 (09:03→09:19)
[2021-07-13] MEDS: dexAMETHasone 2 MG TAB PO SCH (09:04)
[2021-07-13] MEDS: NYSTATIN 100,000 UNIT/GM POWD 15 GM TOPICAL SCH ×2 (09:04→21:36)
[2021-07-13] MEDS: ZINC SULFATE 220 MG CAP PO SCH ×2 (09:04→09:18)
[2021-07-13] MEDS: CITALOPRAM HYDROBROMIDE 20 MG TAB PO SCH (09:04)
[2021-07-13] MEDS: ASCORBIC ACID 500 MG TAB PO SCH (09:04)
[2021-07-13] MEDS: APIXABAN 5 MG TAB PO SCH ×2 (09:04→21:36)
[2021-07-13] MEDS: CYANOCOBALAMIN 500 MCG TAB PO SCH (09:04)
[2021-07-13] MEDS: ASPIRIN 81 MG PO SCH (09:04)
[2021-07-13] MEDS: MEMANTINE 10 MG TAB PO SCH ×2 (09:04→21:36)
[2021-07-13] MEDS: CALCIUM CARB-VIT D 500 MG-5 MCG TAB PO SCH ×2 (09:04→09:19)
[2021-07-13 11:01] LABS: Magnesium 2.1 mg/dL (1.5-2.4)
[2021-07-13 11:12] LABS: African American GFR (CKD) 84.6 (60.0-200.0); Albumin 2.8 g/dL (3.8-4.9); Albumin/Globulin Ratio 1.06 (1.60-3.17); Anion Gap 11.4 mmol/L (10.00-18.00); BUN/Creat Ratio 24.63 Ratio (12.00-20.00); Blood Urea Nitrogen 18.2 mg/dL (9.0-27.0); Calcium 8.4 mg/dL (8.7-10.3); Carbon Dioxide 23.6 mmol/L (20.0-27.5); Globulin 2.6 g/dL (1.6-3.3); Potassium 3.8 mmol/L (3.5-5.5); Total Bilirubin 0.3 mg/dL (0.30-1.20); Total Protein 5.4 g/dL (6.2-8.2)
[2021-07-13 14:00] VITALS: BMI 22.6
--- NOTE | 2021-07-13 15:31 | P.PN ---
Subjective Progress Note Date: 07/13/21 Hospital course: Patient is a very pleasant 85-year-old female with a past medical history of CAD with pacemaker, chronic persistent atrial fibrillation on anticoagulation with Eliquis, hypertension, and dementia. She presented to the hospital on 07/11/21 with a chief complaint of alteration in mental status and dehydration. CT head and cervical spine was completed showing cerebral atrophy and chronic small vessel ischemia with no acute intercranial or cervical abnormalities. EKG consistent with atrial fibrillation. Patient was subsequently diagnosed with Covid 19 virus infection and it is unclear whether or not patient received vaccinations. Chest x-ray revealing a left pleural effusion and left lower lobe pneumonia. Pro-calcitonin was negative at 0.04. ProBNP slightly elevated at 2160. Troponins were trended 3 at less than 0.012. Inflammatory markers were elevated with d-dimer 2.08, CRP of 2.4, and LDH of 602. Urinalysis positive for blood and infection. Patient admitted under our services for treatment of Covid 19 virus infection and UTI. Physical exam: Patient seen and fully evaluated at the bedside. She appeared to be resting comfortably on 2 L O2 via nasal cannula with respirations even, regular, and unlabored. Patient alert to self only and confused to time, place, and situation. She denied having any pain or discomfort including headache, chest pain, shortness of breath, abdominal pain, or any pain in her extremities. Morning labs reviewed and stable. Vital signs reviewed and stable. General: Nontoxic, no distress and appears stated age. Derm: Skin warm and dry, normal coloration for ethnicity. Head: Atraumatic, normocephalic and symmetric. Patient very hard of hearing. Eyes: EOMs intact, no lid lag, and anicteric sclera Mouth: no lip lesions, mucus membranes moist Cardiovascular: Irregularly irregular rhythm, systolic murmur, positive posterior tibial pulses bilaterally, and cap refill < 2 seconds. Lungs: Respirations even, regular, and unlabored on 2 L O2 via nasal cannula. Lungs diminished, no rhonchi, no rales, no wheezing, and no accessory muscle us age. Abdominal: soft, nontender to palpation, no guarding, no appreciable organomegaly Ext: ROM intact. No gross muscle atrophy. Left lower extremity with what appears to be chronic deformity to left knee with left lower extremity left laterally rotated. Neuro: Speech clear, face symmetrical, GCS 14. Psych: Alert and oriented to person only and confused to time, place, and situation. Patient is very calm and cooperative. Assessment and Plan of Care: Covid 19 virus infection Left-sided pneumonia with pleural effusion Acute respiratory failure with hypoxia secondary to COVID 19 pneumonia -Oxygenation to be administered and titrated as needed to maintain SPO2 equal to or greater than 90% -Telemetry monitoring. -Continue trending inflammatory markers -Encourage Incentive Spirometry 10-15x hourly while awake -Steroids: Decadron 6 mg daily -Continue vitamin C, Vitamin D, and Zinc. -Pulmonology following, appreciate further recommendations. -DVT prophylaxis with Eliquis -Strict Droplet plus Contact precautions Group D enterococcus UTI -Continue daily medication regimen with Rocephin 1 g daily. Advanced cognitive impairment resulting from underlying Alzheimer's dementia aggravated by current infection Acute on chronic medical debility -Provide safe and supportive care with redirection as needed. -Fall precautions -PT/OT -Continue Namenda 10 mg twice daily. Vitamin B12 deficiency -Continue daily medication regimen with 1000 g daily Chronic persistent atrial fibrillation -Continue anticoagulation with Eliquis along with Cardizem 240 mg daily. CODE STATUS: DO NOT RESUSCITATE/DO NOT INTUBATE DVT prophylaxis: Eliquis Discussed with: Patient, RN, and patient's son Deven Anticipated discharge date: Clinical course to determine Anticipated discharge place: Family requesting SNF placement would like [facility] or [facility] A total of 40 minutes was spent on the care of this complex patient more than 50% of the time was spent in counseling and care coordination. Objective - Vital Signs Vital signs: Vital Signs Temp 97.5 F L 07/13/21 07:51 Pulse 68 07/13/21 07:51 Resp 17 07/13/21 07:51 BP 124/86 07/13/21 07:51 Pulse Ox 96 07/13/21 07:51 Intake & Output 07/12/21 07/13/21 07/13/21 18:59 06:59 18:59 Intake Total 1310 1200 Output Total 300 300 Balance 1010 900 Intake: Intake, IV Titration 600 900 Amount Dextrose 5%-0.45% NaCl 1, 600 900 000 ml @ 75 mls/hr IV . [id number] [facility] Rx#:[id number] Oral 710 300 Output: Urine 300 300 Other: Voiding Method Indwelling Catheter - Labs CBC & Chem 7: 07/13/21 02:58 07/13/21 02:58 Labs: Abnormal Lab Results - Last 24 Hours (Table) 07/12/21 07/12/21 07/13/21 Range/Units 06:31 06:31 02:58 Hct 47.0 H (34.0-46.0) % MCHC 31.8 L (32.0-37.0) g/dL MPV 13.7 H (9.5-12.2) fL Immature Gran # 0.06 H (0.00-0.04) X 10*3/uL Lymphocytes # 0.85 L (0.90-5.00) X 10*3/uL Eosinophils # 0 L (0.04-0.35) X 10*3/uL Chloride 110 H (96-109) mmol/L Anion Gap 9.80 L (10.00-18.00) mmol/L BUN/Creatinine Ratio 30.17 H (12.00-20.00) Ratio Glucose 128 H (70-110) mg/dL Calcium 8.1 L (8.7-10.3) mg/dL AST 12 L (13-35) U/L Total Protein 5.4 L (6.2-8.2) g/dL Albumin 2.8 L (3.8-4.9) g/dL Albumin/Globulin Ratio 1.08 L (1.60-3.17) g/dL Microbiology - Last 24 Hours (Table) 07/10/21 18:55 Blood Culture - Preliminary Blood No Growth after 48 hours 07/10/21 18:40 Blood Culture - Preliminary Blood No Growth after 48 hours 07/10/21 20:15 Urine Culture - Preliminary Urine,Voided Group D Enterococcus
--- NOTE | 2021-07-13 17:27 | P.CNPUL ---
History of Present Illness Consult date: 07/13/21 Requesting physician: Delano Oro Reason for consult: abnormal CXR/CT (left pleural effusion/infiltrate) Chief complaint: altered mental status History of present illness: This is an 85-year-old female patient who is a poor historian. She was brought in by EMS on the with altered mental status suspected dehydration and weakness. Her son was here in the ICU with COVID-19 pneumonia. She also tests positive. Unclear as to when her symptoms may have started. Chest x-ray revealed a left pleural effusion and left lower lobe pneumonia. No evidence of heart failure. Right lung is clear. Computed tomography scan of the brain revealed no acute intracranial abnormalities. Urine culture is positive for Enterococcus faecalis. Blood cultures revealing no growth. white count 8.0. Hemoglobin 15.2. D-dimer 2.12. Sodium 140. Potassium 3.8. Glucose 127. Troponins negative 4. Pro-calcitonin 0.03. She is seen today in consultation on the regular medical floor. She is currently awake and alert. Somewhat confused to time and place. Poor historian. She is currently afebrile. Maintaining O2 saturations in the 90s on 3 L/m per nasal cannula. Hemodynamically stable. She's been initiated on ceftriaxone. Continued on Eliquis, Decadron, vitamin supplements. Review of Systems ROS unobtainable: due to mental status Past Medical History Past Medical History: Atrial Fibrillation Additional Past Medical History / Comment(s): buttock wound History of Any Multi-Drug Resistant Organisms: None Reported Past Anesthesia/Blood Transfusion Reactions: No Reported Reaction Past Psychological History: No Psychological Hx Reported Smoking Status: Unknown if ever smoked Past Alcohol Use History: None Reported Past Drug Use History: None Reported - Past Family History Father Family Medical History: Unable to Obtain Mother Family Medical History: Unable to Obtain Medications and Allergies Home Medications Medication Instructions Recorded Confirmed Type Apixaban [Eliquis] 2.5 mg PO BID 07/10/21 07/10/21 History Ascorbic Acid [Vitamin C] 250 mg PO DAILY 07/10/21 07/10/21 History Aspirin EC [Ecotrin Low Dose] 81 mg PO DAILY 07/10/21 07/10/21 History Calcium Carbonate/Vitamin D3 1 tab PO DAILY 07/10/21 07/10/21 History [Calcium 600-D3 20 mcg (800 Unit)] Cholecalciferol [Vitamin D3 (25 50 mcg PO DAILY 07/10/21 07/10/21 History Mcg = 1000 Iu)] Citalopram Hydrobromide [CeleXA] 20 mg PO DAILY 07/10/21 07/10/21 History Cranberry Fruit Extract [Cranberry] 500 mg PO DAILY 07/10/21 07/10/21 History Cyanocobalamin (Vitamin B-12) 1,000 mcg PO DAILY 07/10/21 07/10/21 History [Vitamin B-12] Diltiazem Cd [Cardizem CD] 240 mg PO DAILY 07/10/21 07/10/21 History Doxycycline Hyclate 100 mg PO BID 07/10/21 07/10/21 History Furosemide [Lasix] 40 mg PO DAILY 07/10/21 07/10/21 History Memantine [Namenda] 10 mg PO BID 07/10/21 07/10/21 History Nystatin 100,000 Unit/gm Powd 1 applic TOPICAL BID 07/10/21 07/10/21 History [Mycostatin Powder] Zinc 50 mg PO DAILY 07/10/21 07/10/21 History Allergies Allergy/AdvReac Type Severity Reaction Status Date / Time No Known Allergies Allergy Verified 07/10/21 19:27 Physical Exam Vitals: Vital Signs Temp Pulse Resp BP Pulse Ox 07/13/21 14:00 99.0 F 89 18 112/64 94 L 07/13/21 09:13 94 L 07/13/21 07:51 97.5 F L 68 17 124/86 96 07/13/21 05:35 98.1 F 67 16 130/86 96 07/13/21 02:15 97.4 F L 82 17 96 07/13/21 02:00 97.5 F L 82 16 138/80 07/13/21 01:47 97.5 F L 82 16 138/80 92 L 07/12/21 20:00 97.6 F 61 17 153/90 90 L 07/12/21 17:53 98 F 84 16 121/84 96 Intake and Output 07/13/21 07/13/21 07/13/21 06:59 14:59 22:59 Intake Total 1200 Output Total 300 550 Balance 900 -550 Intake: Intake, IV Titration 900 Amount Dextrose 5%-0.45% NaCl 1, 900 000 ml @ 75 mls/hr IV . [id number] [facility] Rx#:[id number] Oral 300 Output: Urine 300 550 Other: Voiding Method Indwelling Catheter Indwelling Catheter Weight 63.503 kg GENERAL EXAM: Alert, oriented times one, 85-year-old female, on 3 L nasal cannula, comfortable in no apparent distress. HEAD: Normocephalic. EYES: Normal reaction of pupils, equal size. NOSE: Clear with pink turbinates. THROAT: No erythema or exudates. NECK: No masses, no JVD. CHEST: No chest wall deformity. LUNGS: Equal air entry with crackles in the left lung base. CVS: S1 and S2 normal with no audible murmur, regular rhythm. ABDOMEN: No hepatosplenomegaly, normal bowel sounds, no guarding or rigidity. SPINE: No scoliosis or deformity SKIN: No rashes CENTRAL NERVOUS SYSTEM: No focal deficits, tone is normal in all 4 extremities. EXTREMITIES: There is no peripheral edema. No clubbing, no cyanosis. Peripheral pulses are intact. Results - Laboratory Findings CBC and BMP: 07/13/21 02:58 07/13/21 02:58 PT/INR, D-dimer D-Dimer 2.12 mg/L FEU (<0.60) H 07/12/21 06:31 Abnormal lab findings: Abnormal Labs 07/10/21 07/10/21 07/10/21 16:17 16:17 16:17 WBC Hct 47.6 H MCHC Plt Count 143 L MPV Immature Gran # Lymphocytes # 0.9 L Lymphocytes # (Manual) Monocytes # (Manual) Eosinophils # Eosinophils # (Manual) D-Dimer Sodium 136 L Chloride Anion Gap BUN 24 H BUN/Creatinine Ratio Glucose 114 H Calcium 8.1 L Ferritin AST C-Reactive Protein Total Protein 6.2 L Albumin 3.0 L Albumin/Globulin Ratio Urine Appearance Urine Protein Urine Blood Ur Leukocyte Esterase Urine RBC Urine WBC Urine WBC Clumps Urine Bacteria Urine Mucus Coronavirus (PCR) Detected A 07/10/21 07/10/21 07/10/21 18:50 18:50 20:15 WBC Hct MCHC Plt Count MPV Immature Gran # Lymphocytes # Lymphocytes # (Manual) Monocytes # (Manual) Eosinophils # Eosinophils # (Manual) D-Dimer 2.08 H Sodium Chloride Anion Gap BUN BUN/Creatinine Ratio Glucose Calcium Ferritin 384.0 H AST C-Reactive Protein 2.4 H Total Protein Albumin Albumin/Globulin Ratio Urine Appearance Turbid H Urine Protein 2+ H Urine Blood Large H Ur Leukocyte Esterase Large H Urine RBC >182 H Urine WBC >182 H Urine WBC Clumps Many H Urine Bacteria Many H Urine Mucus Rare H Coronavirus (PCR) 07/11/21 07/11/21 07/12/21 05:45 05:45 06:31 WBC 2.99 L Hct MCHC 31.7 L 31.8 L Plt Count MPV 13.6 H 13.7 H Immature Gran # 0.06 H Lymphocytes # 0.85 L Lymphocytes # (Manual) 0.18 L Monocytes # (Manual) 0.06 L Eosinophils # 0 L Eosinophils # (Manual) 0 L D-Dimer Sodium Chloride Anion Gap BUN BUN/Creatinine Ratio 21.63 H Glucose 150 H Calcium 8.0 L Ferritin AST C-Reactive Protein Total Protein 5.5 L Albumin 2.8 L Albumin/Globulin Ratio 1.04 L Urine Appearance Urine Protein Urine Blood Ur Leukocyte Esterase Urine RBC Urine WBC Urine WBC Clumps Urine Bacteria Urine Mucus Coronavirus (PCR) 07/12/21 07/12/21 07/13/21 06:31 06:31 02:58 WBC Hct MCHC Plt Count MPV Immature Gran # Lymphocytes # Lymphocytes # (Manual) Monocytes # (Manual) Eosinophils # Eosinophils # (Manual) D-Dimer 2.12 H Sodium Chloride 110 H Anion Gap 9.80 L BUN BUN/Creatinine Ratio 30.17 H 24.63 H Glucose 128 H 127 H Calcium 8.1 L 8.4 L Ferritin AST 12 L C-Reactive Protein Total Protein 5.4 L 5.4 L Albumin 2.8 L 2.8 L Albumin/Globulin Ratio 1.08 L 1.06 L Urine Appearance Urine Protein Urine Blood Ur Leukocyte Esterase Urine RBC Urine WBC Urine WBC Clumps Urine Bacteria Urine Mucus Coronavirus (PCR) 07/13/21 02:58 WBC Hct 47.0 H MCHC Plt Count MPV Immature Gran # Lymphocytes # Lymphocytes # (Manual) Monocytes # (Manual) Eosinophils # Eosinophils # (Manual) D-Dimer Sodium Chloride Anion Gap BUN BUN/Creatinine Ratio Glucose Calcium Ferritin AST C-Reactive Protein Total Protein Albumin Albumin/Globulin Ratio Urine Appearance Urine Protein Urine Blood Ur Leukocyte Esterase Urine RBC Urine WBC Urine WBC Clumps Urine Bacteria Urine Mucus Coronavirus (PCR) - Diagnostic Findings Chest x-ray: image reviewed CT scan - chest: image reviewed Assessment and Plan Assessment: 1 Altered mental status suspect secondary to urinary tract infection 2 Urinary tract infection secondary to Enterococcus faecalis 3 COVID-19 infection 4 Left lower lobe infiltrate/effusion 5 History of atrial fibrillation, anticoagulated with Eliquis 6 Poor historian plan: The patient was seen and evaluated Chest x-ray and labs reviewed Remains on Eliquis, Decadron, vitamin supplements follow-up chest x-ray in a.m. Titrate the FiO2 as tolerated DO NOT RESUSCITATE/DO NOT INTUBATE CODE STATUS We will continue to follow and make further recommendations based on her clinical status I, the cosigning physician, performed a history & physical examination of the patient. Lungs sounds crackles in the left lung base. Maintaining good O2 saturations in the 90s on 3 L/m per nasal cannula. I discussed the assessment and plan of care with my nurse practitioner, Kirsten Capone. I attest to the above consultation as dictated by her. I have personally seen and examined the patient, performed the documentation and the assessment and plan as written. Number of minutes spent on the visit: 20.
--- NOTE | 2021-07-14 07:39 | P.GSCN ---
History of Present Illness Consult date: 07/13/21 Reason for Consult: Hematuria, UTI Requesting physician: Delano Oro History of present illness: The patient is an 85-year-old female who is followed [facility] (Dr. Calle). Patient was admitted with generalized weakness and altered mental status. Urinalysis has shown evidence of a UTI, and a urine culture has shown an enterococcus UTI. She has an indwelling Carpenter catheter in place. Hematuria has been noted. I am consulted for this reason. She has tested positive for COVID-19. Her son is currently hospitalized in the ICU with COVID-19 pneumonia. She is unable to provide any relevant history. Review of Systems ROS unobtainable: due to mental status Past Medical History Past Medical History: Atrial Fibrillation Additional Past Medical History / Comment(s): buttock wound History of Any Multi-Drug Resistant Organisms: None Reported Past Anesthesia/Blood Transfusion Reactions: No Reported Reaction Past Psychological History: No Psychological Hx Reported Smoking Status: Unknown if ever smoked Past Alcohol Use History: None Reported Past Drug Use History: None Reported - Past Family History Father Family Medical History: Unable to Obtain Mother Family Medical History: Unable to Obtain Medications and Allergies Home Medications Medication Instructions Recorded Confirmed Type Apixaban [Eliquis] 2.5 mg PO BID 07/10/21 07/10/21 History Ascorbic Acid [Vitamin C] 250 mg PO DAILY 07/10/21 07/10/21 History Aspirin EC [Ecotrin Low Dose] 81 mg PO DAILY 07/10/21 07/10/21 History Calcium Carbonate/Vitamin D3 1 tab PO DAILY 07/10/21 07/10/21 History [Calcium 600-D3 20 mcg (800 Unit)] Cholecalciferol [Vitamin D3 (25 50 mcg PO DAILY 07/10/21 07/10/21 History Mcg = 1000 Iu)] Citalopram Hydrobromide [CeleXA] 20 mg PO DAILY 07/10/21 07/10/21 History Cranberry Fruit Extract [Cranberry] 500 mg PO DAILY 07/10/21 07/10/21 History Cyanocobalamin (Vitamin B-12) 1,000 mcg PO DAILY 07/10/21 07/10/21 History [Vitamin B-12] Diltiazem Cd [Cardizem CD] 240 mg PO DAILY 07/10/21 07/10/21 History Doxycycline Hyclate 100 mg PO BID 07/10/21 07/10/21 History Furosemide [Lasix] 40 mg PO DAILY 07/10/21 07/10/21 History Memantine [Namenda] 10 mg PO BID 07/10/21 07/10/21 History Nystatin 100,000 Unit/gm Powd 1 applic TOPICAL BID 07/10/21 07/10/21 History [Mycostatin Powder] Zinc 50 mg PO DAILY 07/10/21 07/10/21 History Allergies Allergy/AdvReac Type Severity Reaction Status Date / Time No Known Allergies Allergy Verified 07/10/21 19:27 Surgical - Exam Vital Signs Temp Pulse Resp BP Pulse Ox 98.0 F 80 20 119/73 91 L 07/10/21 15:54 07/10/21 15:54 07/10/21 15:54 07/10/21 15:54 07/10/21 15:54 - General well developed, well nourished, no distress - Respiratory normal respiratory effort - Abdomen Abdomen: soft, non tender, no guarding, no rigid, no rebound Results - Labs 07/13/21 02:58 07/13/21 02:58 Abnormal Lab Results - Last 24 Hours (Table) 07/13/21 07/13/21 Range/Units 02:58 02:58 Hct 47.0 H (34.0-46.0) % BUN/Creatinine Ratio 24.63 H (12.00-20.00) Ratio Glucose 127 H (70-110) mg/dL Calcium 8.4 L (8.7-10.3) mg/dL Total Protein 5.4 L (6.2-8.2) g/dL Albumin 2.8 L (3.8-4.9) g/dL Albumin/Globulin Ratio 1.06 L (1.60-3.17) g/dL Microbiology - Last 24 Hours (Table) 07/10/21 20:15 Urine Culture - Final Urine,Voided Enterococcus faecalis 07/10/21 18:55 Blood Culture - Preliminary Blood No Growth after 48 hours 07/10/21 18:40 Blood Culture - Preliminary Blood No Growth after 48 hours Diabetes panel 07/13/21 Range/Units 02:58 Sodium 140 (135-145) mmol/L Potassium 3.8 (3.5-5.5) mmol/L Chloride 105 (96-109) mmol/L Carbon Dioxide 23.6 (20.0-27.5) mmol/L BUN 18.2 (9.0-27.0) mg/dL Creatinine 0.7 (0.6-1.5) mg/dL Glucose 127 H (70-110) mg/dL Calcium 8.4 L (8.7-10.3) mg/dL AST 23 (13-35) U/L ALT 18 (8-44) U/L Alkaline Phosphatase 71 (41-126) U/L Total Protein 5.4 L (6.2-8.2) g/dL Albumin 2.8 L (3.8-4.9) g/dL Calcium panel 07/13/21 Range/Units 02:58 Calcium 8.4 L (8.7-10.3) mg/dL Albumin 2.8 L (3.8-4.9) g/dL Pituitary panel 07/13/21 Range/Units 02:58 Sodium 140 (135-145) mmol/L Potassium 3.8 (3.5-5.5) mmol/L Chloride 105 (96-109) mmol/L Carbon Dioxide 23.6 (20.0-27.5) mmol/L BUN 18.2 (9.0-27.0) mg/dL Creatinine 0.7 (0.6-1.5) mg/dL Glucose 127 H (70-110) mg/dL Calcium 8.4 L (8.7-10.3) mg/dL Adrenal panel 07/13/21 Range/Units 02:58 Sodium 140 (135-145) mmol/L Potassium 3.8 (3.5-5.5) mmol/L Chloride 105 (96-109) mmol/L Carbon Dioxide 23.6 (20.0-27.5) mmol/L BUN 18.2 (9.0-27.0) mg/dL Creatinine 0.7 (0.6-1.5) mg/dL Glucose 127 H (70-110) mg/dL Calcium 8.4 L (8.7-10.3) mg/dL Total Bilirubin 0.30 (0.30-1.20) mg/dL AST 23 (13-35) U/L ALT 18 (8-44) U/L Alkaline Phosphatase 71 (41-126) U/L Total Protein 5.4 L (6.2-8.2) g/dL Albumin 2.8 L (3.8-4.9) g/dL Assessment and Plan (1) Gross hematuria Current Visit: Yes Status: Acute Code(s): R31.0 - GROSS HEMATURIA SNOMED Code(s): 727020315 (2) UTI (urinary tract infection) due to Enterococcus Current Visit: Yes Status: Acute Code(s): N39.0 - URINARY TRACT INFECTION, SITE NOT SPECIFIED; B95.2 - ENTEROCOCCUS THE CAUSE OF DISEASES CLASSIFIED ELSEWHERE SNOMED Code(s): 431052814684944 Plan: The patient has an indwelling Carpenter catheter, draining blood-tinged urine. The urine culture shows an Enterococcus UTI. She is currently receiving ceftriaxone, which is likely inadequate to treat the Enterococcus UTI. I would consider adding amoxicillin. I would also suggest that the Carpenter catheter be removed as soon as possible is no longer needed. I would recommend a formal hematuria evaluation only if the hematuria persists following UTI treatment.
[2021-07-14] MEDS: ZINC SULFATE 220 MG CAP PO SCH (10:49)
[2021-07-14] MEDS: CITALOPRAM HYDROBROMIDE 20 MG TAB PO SCH (10:49)
[2021-07-14] MEDS: CHOLECALCIFEROL 25 MCG (1000 IU) TABLET PO SCH (10:49)
[2021-07-14] MEDS: ASCORBIC ACID 500 MG TAB PO SCH (10:49)
[2021-07-14] MEDS: ASPIRIN 81 MG PO SCH (10:49)
[2021-07-14] MEDS: dexAMETHasone 2 MG TAB PO SCH (10:49)
[2021-07-14] MEDS: CYANOCOBALAMIN 500 MCG TAB PO SCH (10:49)
[2021-07-14] MEDS: CALCIUM CARB-VIT D 500 MG-5 MCG TAB PO SCH (10:49)
[2021-07-14] MEDS: DILTIAZEM CD 240 MG CAP.ER.24H PO SCH (10:49)
[2021-07-14] MEDS: APIXABAN 5 MG TAB PO SCH (10:50)
[2021-07-14] MEDS: MEMANTINE 10 MG TAB PO SCH ×2 (10:50→23:11)
[2021-07-14] MEDS: NYSTATIN 100,000 UNIT/GM POWD 15 GM TOPICAL SCH ×2 (10:50→23:11)
--- NOTE | 2021-07-14 13:23 | P.PN ---
Subjective Progress Note Date: 07/14/21 No new complaints today. Pt is requiring 2L of O2. Abx changed from ceftriaxone to unasyn to better cover UTI and also cover pneumonia. Objective - Vital Signs Vital signs: Vital Signs Temp 97.6 F 07/14/21 11:00 Pulse 67 07/14/21 11:00 Resp 16 07/14/21 11:00 BP 135/84 07/14/21 11:00 Pulse Ox 98 07/14/21 11:00 Intake & Output 07/13/21 07/14/21 07/14/21 18:59 06:59 18:59 Intake Total 110 Output Total 800 475 475 Balance -823 -590 -071 Weight 63.503 kg Intake: Oral 110 Output: Urine 800 475 475 Other: Voiding Method Indwelling Catheter Indwelling Catheter Indwelling Catheter - Exam Gen: awake, alert HEENT: normocephalic, atraumatic, good hearing acuity, moist mucous membranes Resp: good air exchange, breathing comfortably with no accessory muscle use CVS: good distal perfusion x 4, GI: soft, NTTP, ND : no SPT, no CVAT, lr catheter not present MSK: no pitting edema, no clubbing Neuro: non-focal, moving all extremities Psych: cooperative, euthymic mood - Labs CBC & Chem 7: 07/13/21 02:58 07/13/21 02:58 Labs: Microbiology - Last 24 Hours (Table) 07/10/21 18:40 Blood Culture - Preliminary Blood No Growth after 72 hours 07/10/21 18:55 Blood Culture - Preliminary Blood No Growth after 72 hours 07/10/21 20:15 Urine Culture - Final Urine,Voided Enterococcus faecalis Assessment and Plan Assessment: Covid 19 virus infection Left-sided pneumonia with pleural effusion Acute respiratory failure with hypoxia secondary to COVID 19 pneumonia -Oxygenation to be administered and titrated as needed to maintain SPO2 equal to or greater than 90% -Telemetry monitoring. -Continue trending inflammatory markers -Encourage Incentive Spirometry 10-15x hourly while awake -Steroids: Decadron 6 mg daily -Continue vitamin C, Vitamin D, and Zinc. -Pulmonology following, appreciate further recommendations. 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 -Fall precautions -PT/OT -Continue Namenda 10 mg twice daily. Vitamin B12 deficiency -Continue daily medication regimen with 1000 g daily Chronic persistent atrial fibrillation -Continue anticoagulation with Eliquis along with Cardizem 240 mg daily. CODE STATUS: DO NOT RESUSCITATE/DO NOT INTUBATE DVT prophylaxis: Eliquis Anticipated discharge date: Clinical course to determine Anticipated discharge place: Family requesting SNF placement would like [facility]
[2021-07-14] MEDS: AMPICILLIN-SULBACTAM 3 GM in SODIUM CHLORIDE 0.9% 100 ML IVPB SCH ×2 (14:33→23:10)
--- NOTE | 2021-07-14 15:28 | P.PN ---
Subjective Progress Note Date: 07/14/21 This is an 85-year-old female patient who is a poor historian. She was brought in by EMS on the with altered mental status suspected dehydration and weakness. Her son was here in the ICU with COVID-19 pneumonia. She also tests positive. Unclear as to when her symptoms may have started. Chest x-ray revealed a left pleural effusion and left lower lobe pneumonia. No evidence of heart failure. Right lung is clear. Computed tomography scan of the brain revealed no acute intracranial abnormalities. Urine culture is positive for Enterococcus faecalis. Blood cultures revealing no growth. white count 8.0. Hemoglobin 15.2. D-dimer 2.12. Sodium 140. Potassium 3.8. Glucose 127. Troponins negat albina 4. Pro-calcitonin 0.03. She is seen today in consultation on the regular medical floor. She is currently awake and alert. Somewhat confused to time and place. Poor historian. She is currently afebrile. Maintaining O2 saturations in the 90s on 3 L/m per nasal cannula. Hemodynamically stable. She's been initiated on ceftriaxone. Continued on Eliquis, Decadron, vitamin supplements. The patient is seen today 07/14/2021 in follow-up on the regular medical floor. She is currently resting comfortably in bed. Awake and alert in no acute distress. She is maintaining good O2 saturations in the 90s on 2 L/m per nasal cannula. She has 0.9 normal saline running at 75 ML's per hour. Urine culture positive for Enterococcus faecalis. She's been initiated on Unasyn. Anticoagulated with Eliquis. Albuterol as needed. Objective - Vital Signs Vital signs: Vital Signs Temp 98 F 07/14/21 15:11 Pulse 62 07/14/21 15:11 Resp 16 07/14/21 15:11 BP 118/79 07/14/21 15:11 Pulse Ox 95 07/14/21 15:11 Intake & Output 07/13/21 07/14/21 07/14/21 18:59 06:59 18:59 Intake Total 110 Output Total 800 475 475 Balance -800 -325 -846 Weight 63.503 kg Intake: Oral 110 Output: Urine 800 475 475 Other: Voiding Method Indwelling Catheter Indwelling Catheter Indwelling Catheter - Exam GENERAL EXAM: Alert, oriented times one, 85-year-old female, on 2 L nasal cannula, comfortable in no apparent distress. HEAD: Normocephalic. EYES: Normal reaction of pupils, equal size. NOSE: Clear with pink turbinates. THROAT: No erythema or exudates. NECK: No masses, no JVD. CHEST: No chest wall deformity. LUNGS: Equal air entry with crackles in the left lung base. CVS: S1 and S2 normal with no audible murmur, regular rhythm. ABDOMEN: No hepatosplenomegaly, normal bowel sounds, no guarding or rigidity. SPINE: No scoliosis or deformity SKIN: No rashes CENTRAL NERVOUS SYSTEM: No focal deficits, tone is normal in all 4 extremities. EXTREMITIES: There is no peripheral edema. No clubbing, no cyanosis. Peripheral pulses are intact. - Labs CBC & Chem 7: 07/13/21 02:58 07/13/21 02:58 Labs: Microbiology - Last 24 Hours (Table) 07/10/21 18:40 Blood Culture - Preliminary Blood No Growth after 72 hours 07/10/21 18:55 Blood Culture - Preliminary Blood No Growth after 72 hours 07/10/21 20:15 Urine Culture - Final Urine,Voided Enterococcus faecalis Assessment and Plan Assessment: 1 Altered mental status suspect secondary to urinary tract infection 2 Urinary tract infection secondary to Enterococcus faecalis 3 COVID-19 infection 4 Left lower lobe infiltrate/effusion 5 History of atrial fibrillation, anticoagulated with Eliquis 6 Poor historian plan: The patient was seen and evaluated Stable and on 2 L nasal cannula Antibiotics in the form of Unasyn Remains on Eliquis, Decadron, vitamin supplements Follow-up chest x-ray in a.m. Titrate the FiO2 as tolerated We will continue to follow I, the cosigning physician, performed a history & physical examination of the pa tient. Lungs sounds crackles in the left lung base. Maintaining good O2 saturations in the 90s on 2 L/m per nasal cannula. I discussed the assessment and plan of care with my nurse practitioner, Kirsten Capone. I attest to the above note as dictated by her. I have personally seen and examined the patient, performed the documentation and the assessment and plan as written. Number of minutes spent on the visit: 10.
[2021-07-14] MEDS: DEXTROSE 5%-0.45% NACL 1,000 ML IV SCH ×2 (21:20→23:11)
[2021-07-14 21:58] LABS: Basophils % (A) 0 %; Eosinophils % (A) 0 %; HCT 46.2 % (34.0-46.0); HGB 14.7 gm/dL (11.4-16.0); Lymphocytes # (A) 0.5 k/uL (1.0-4.8); Lymphocytes % (A) 8 %; MCHC 31.9 g/dL (31.0-37.0); MCV 94.2 fL (80.0-100.0); Mean Platelet Volume 11.7; Monocytes # (A) 0.2 k/uL (0-1.0); Monocytes % (A) 3 %; Neutrophils # (A) 5.5 k/uL (1.3-7.7); Neutrophils % (A) 87 %; Platelet Count 189 k/uL (150-450); RBC 4.91 m/uL (3.80-5.40); RDW 12.8 % (11.5-15.5); WBC 6.3 k/uL (3.8-10.6)
[2021-07-14] MEDS: ACETAMINOPHEN TAB 325 MG TAB PO PRN (23:19)
[2021-07-15] MEDS: AMPICILLIN-SULBACTAM 3 GM in SODIUM CHLORIDE 0.9% 100 ML IVPB SCH ×5 (01:24→23:06)
--- NOTE | 2021-07-15 08:18 | XR ---
EXAMINATION TYPE: XR chest 1V portable DATE OF EXAM: 07/15/2021 Comparison: 07/10/2021 Clinical History: 85-year-old female Pneumonia Findings: Left anterior chest wall pacemaker generator and right ventricular lead. Continued moderate left pleu ral effusion and left basilar opacity. Pulmonary vasculature within normal limits. Left heart margin obscured by adjacent pleural parenchymal opacity. Impression: Continued moderate left pleural effusion with adjacent atelectasis and/or consolidation.
--- NOTE | 2021-07-15 08:22 | P.PN ---
Progress Note - Text Progress Note Date: 07/15/21 The patient is currently receiving Unasyn for her enterococcus UTI. This was ordered yesterday, and it typically takes antibiotics approximately 48 hours to begin treating a UTI. I would suggest that the Carpenter catheter be removed unless this is contraindicated, as this is a potential source of additional infection and catheter trauma may contribute to the hematuria.
[2021-07-15 09:22] LABS: Basophils # (A) 0.03 X 10*3/uL (0.00-0.10); Basophils % (A) 0.4 %; Eosinophils # (A) 0 X 10*3/uL (0.04-0.35); Eosinophils % (A) 0 %; HCT 46.3 % (37.2-46.3); Immature Grans, Automated 1.6 %; MCH 29.4 pg (27.0-32.0); MCHC 32.4 g/dL (32.0-37.0); MCV 90.8 fL (80.0-97.0); Monocytes # (A) 0.36 X 10*3/uL (0.20-1.00); Monocytes % (A) 5.4 %; NRBC Per 100 WBC 0 /100 WBCS (0.0-0.0); Neutrophils # (A) 5.57 X 10*3/uL (1.80-7.70); Neutrophils % (A) 83.6 %; Platelet Count 201 X 10*3/uL (140-440); RDW 13.1 % (11.5-14.5); WBC 6.67 X 10*3/uL (4.50-10.00)
[2021-07-15] MEDS: dexAMETHasone 2 MG TAB PO SCH (09:42)
[2021-07-15] MEDS: CITALOPRAM HYDROBROMIDE 20 MG TAB PO SCH (09:42)
[2021-07-15] MEDS: CHOLECALCIFEROL 25 MCG (1000 IU) TABLET PO SCH (09:42)
[2021-07-15] MEDS: MEMANTINE 10 MG TAB PO SCH ×2 (09:42→19:52)
[2021-07-15] MEDS: CYANOCOBALAMIN 500 MCG TAB PO SCH (09:42)
[2021-07-15] MEDS: CALCIUM CARB-VIT D 500 MG-5 MCG TAB PO SCH (09:42)
[2021-07-15] MEDS: ASCORBIC ACID 500 MG TAB PO SCH (09:42)
[2021-07-15] MEDS: ZINC SULFATE 220 MG CAP PO SCH (09:43)
[2021-07-15] MEDS: DILTIAZEM CD 240 MG CAP.ER.24H PO SCH (09:43)
[2021-07-15] MEDS: NYSTATIN 100,000 UNIT/GM POWD 15 GM TOPICAL SCH ×2 (09:43→19:52)
[2021-07-15 09:44] LABS: ALT 45 U/L (8-44); AST 33 U/L (13-35); African American GFR (CKD) 94.4 (60.0-200.0); Albumin 2.8 g/dL (3.8-4.9); Albumin/Globulin Ratio 1.05 (1.60-3.17); Alkaline Phosphatase 75 U/L (41-126); BUN/Creat Ratio 26.31 Ratio (12.00-20.00); Bilirubin, Conjugated <0.20 mg/dL (0.20-0.40); Blood Urea Nitrogen 16.1 mg/dL (9.0-27.0); Calcium 8.4 mg/dL (8.7-10.3); Carbon Dioxide 22.3 mmol/L (20.0-27.5); Chloride 100 mmol/L (96-109); Globulin 2.7 g/dL (1.6-3.3); Glucose 125 mg/dL (70-110); LDH 238 U/L (120-246); Non-African American GFR(CKD) 81.4 (60.0-200.0); Potassium 4.2 mmol/L (3.5-5.5); Sodium 133 mmol/L (135-145); Total Protein 5.5 g/dL (6.2-8.2)
[2021-07-15 09:46] LABS: C Reactive Protein <0.30 mg/dL (0.00-0.80)
[2021-07-15] MEDS: DEXTROSE 5%-0.45% NACL 1,000 ML IV SCH ×2 (13:49→23:06)
--- NOTE | 2021-07-15 17:08 | P.PN ---
Subjective Progress Note Date: 07/15/21 Principal diagnosis: Weakness. This is an 85-year-old female patient who is a poor historian. She was brought in by EMS on the with altered mental status suspected dehydration and weakness. Her son was here in the ICU with COVID-19 pneumonia. She also tests positive. Unclear as to when her symptoms may have started. Chest x-ray revealed a left pleural effusion and left lower lobe pneumonia. No evidence of heart failure. Right lung is clear. Computed tomography scan of the brain revealed no acute intracranial abnormalities. Urine culture is positive for Enterococcus faecalis. Blood cultures revealing no growth. white count 8.0. Hemoglobin 15.2. D-dimer 2.12. Sodium 140. Potassium 3.8. Glucose 127. Troponins negative 4. Pro-calcitonin 0.03. She is seen today in consultation on the regular medical floor. She is currently awake and alert. Somewhat confused to time and place. Poor historian. She is currently afebrile. Maintaining O2 saturations in the 90s on 3 L/m per nasal cannula. Hemodynamically stable. She's been initiated on ceftriaxone. Continued on Eliquis, Decadron, vitamin supplements. The patient is seen today 07/14/2021 in follow-up on the regular medical floor. She is currently resting comfortably in bed. Awake and alert in no acute distress. She is maintaining good O2 saturations in the 90s on 2 L/m per nasal cannula. She has 0.9 normal saline running at 75 ML's per hour. Urine culture positive for Enterococcus faecalis. She's been initiated on Unasyn. Anticoagulated with Eliquis. Albuterol as needed. Progress note dated 07/15/2021. The patient is again seen in room 484. She is resting comfortably in bed. She is awake and alert and not having any distress. Urine culture was positive for Enterococcus faecalis. She was started on Unasyn. Currently, she is on 2 L nasal cannula. She's getting D5 half-normal saline at 75 mL an hour. She denies any respiratory issues. She denies any chest pain or chest discomfort. She has been anticoagulated with Eliquis. She's using albuterol as needed. Current laboratory data includes a white count of 6.67, hemoglobin 15, hematocrit 46.3, platelet count 201,000. Sodium 133, potassium 4.2, chlorides 100, CO2 22, anion gap 11, BUN 16, creatinine 0.6. The d-dimer is 3.57. Pro- calcitonin is 0.03. Chest x-ray shows left-sided pleural effusion with left ba silar atelectasis. Objective - Vital Signs Vital signs: Vital Signs Temp 97.5 F L 07/15/21 14:24 Pulse 64 07/15/21 14:24 Resp 17 07/15/21 14:24 BP 101/69 07/15/21 14:24 Pulse Ox 94 L 07/15/21 14:24 Intake & Output 07/14/21 07/15/21 07/15/21 18:59 06:59 18:59 Intake Total 228 Output Total 675 510 Balance -447 -510 Intake: Oral 228 Output: Urine 675 510 Other: Voiding Method Indwelling Catheter Indwelling Catheter Indwelling Catheter - Exam No acute distress, oriented 3. Currently on 2 L nasal cannula. Saturations are 96%. HEENT examination is grossly unremarkable. Neck supple. Full range of motion. No adenopathy thyromegaly or neck vein distention. Cardiovascular examination reveals regular rhythm rate. S1-S2 normal. No S3 or S4. No discernible murmur noted. Heart sounds are distant. Heart rate 87 bpm. Lungs reveal dullness at the left base. Scattered rhonchi are noted. Minimal crackles. Abdomen soft bowel sounds are heard. No masses or tenderness. Extremities are intact. No cyanosis clubbing or edema. Skin is without rash or lesion. Neurologic examination is brief but nonfocal. - Labs CBC & Chem 7: 07/15/21 03:21 07/15/21 03:21 Labs: Abnormal Lab Results - Last 24 Hours (Table) 07/14/21 07/15/21 07/15/21 Range/Units 20:56 03:21 03:21 Hct 46.2 H (34.0-46.0) % MPV 13.0 H (9.5-12.2) fL Immature Gran # 0.11 H (0.00-0.04) X 10*3/uL Lymphocytes # 0.5 L 0.60 L (1.0-4.8) k/uL Eosinophils # 0 L (0.04-0.35) X 10*3/uL D-Dimer 3.57 H (<0.60) mg/L FEU Sodium (135-145) mmol/L BUN/Creatinine Ratio (12.00-20.00) Ratio Glucose (70-110) mg/dL Calcium (8.7-10.3) mg/dL Conjugated Bilirubin (0.20-0.40) mg/dL ALT (8-44) U/L Total Protein (6.2-8.2) g/dL Albumin (3.8-4.9) g/dL Albumin/Globulin Ratio (1.60-3.17) g/dL 07/15/21 Range/Units 03:21 Hct (34.0-46.0) % MPV (9.5-12.2) fL Immature Gran # (0.00-0.04) X 10*3/uL Lymphocytes # (1.0-4.8) k/uL Eosinophils # (0.04-0.35) X 10*3/uL D-Dimer (<0.60) mg/L FEU Sodium 133 L (135-145) mmol/L BUN/Creatinine Ratio 26.31 H (12.00-20.00) Ratio Glucose 125 H (70-110) mg/dL Calcium 8.4 L (8.7-10.3) mg/dL Conjugated Bilirubin <0.20 L (0.20-0.40) mg/dL ALT 45 H (8-44) U/L Total Protein 5.5 L (6.2-8.2) g/dL Albumin 2.8 L (3.8-4.9) g/dL Albumin/Globulin Ratio 1.05 L (1.60-3.17) g/dL Microbiology - Last 24 Hours (Table) 07/10/21 18:55 Blood Culture - Preliminary Blood No Growth after 96 hours 07/10/21 18:40 Blood Culture - Preliminary Blood No Growth after 96 hours Assessment and Plan Assessment: 1 Altered mental status suspect secondary to urinary tract infection . 2 Urinary tract infection secondary to Enterococcus faecalis. 3 COVID-19 infection. 4 Left lower lobe infiltrate/effusion. 5 History of atrial fibrillation, anticoagulated with Eliquis. 6 Poor historian. Plan: Plan dated 07/15/2021. Patient remains on 2 L nasal cannula. She's getting dextrose with half-normal saline at 75 mL an hour. The patient is on Unasyn for her urinary tract infection. The patient remains on Eliquis, Decadron, and vitamin supplements. Chest x-ray is unchanged showing a left-sided pleural effusion. We will continue to follow make recommendations were appropriate. Prognosis is guarded. No additional recommendations are made. Time with Patient: Less than 30
--- NOTE | 2021-07-15 17:32 | P.PN ---
<Joon Callahan - Last Filed: 07/15/21 17:24> Subjective Progress Note Date: 07/15/21 Hospital course: Patient is a very pleasant 85-year-old female with a past medical history of CAD with pacemaker, chronic persistent atrial fibrillation on anticoagulation with Eliquis, hypertension, and dementia. She presented to the hospital on 07/11/21 with a chief complaint of alteration in mental status and dehydration. CT head and cervical spine was completed showing cerebral atrophy and chronic small vessel ischemia with no acute intercranial or cervical abnormalities. EKG consistent with atrial fibrillation. Patient was subsequently diagnosed with Covid 19 virus infection and it is unclear whether or not patient received vaccinations. Chest x-ray revealing a left pleural effusion and left lower lobe pneumonia. Pro-calcitonin was negative at 0.04. ProBNP slightly elevated at 2160. Troponins were trended 3 at less than 0.012. Inflammatory markers were elevated with d-dimer 2.08, CRP of 2.4, and LDH of 602. Urinalysis positive for blood and infection. Patient admitted under our services for treatment of Covid 19 virus infection and UTI. Physical exam: Patient seen and fully evaluated at the bedside. She appeared to be resting comfortably on 2 L O2 via nasal cannula with respirations even, regular, and unlabored. Patient remains alert to self only. She denied having any pain or discomfort including headache, chest pain, shortness of breath, abdominal pain, or any pain in her extremities. Morning labs reviewed and stable. Vital signs reviewed and stable. General: Nontoxic, no distress and appears stated age. Derm: Skin warm and dry, normal coloration for ethnicity. Head: Atraumatic, normocephalic and symmetric. Patient very hard of hearing. Eyes: EOMs intact, no lid lag, and anicteric sclera Mouth: no lip lesions, mucus membranes moist Cardiovascular: Irregularly irregular rhythm, systolic murmur, positive posterior tibial pulses bilaterally, and cap refill < 2 seconds. Lungs: Respirations even, regular, and unlabored on 2 L O2 via nasal cannula. Lungs diminished, no rhonchi, no rales, no wheezing, and no accessory muscle usage. Abdominal: soft, nontender to palpation, no guarding, no appreciable organomegaly Ext: ROM intact. No gross muscle atrophy. Left lower extremity with what appear s to be chronic deformity to left knee with left lower extremity left laterally rotated. Neuro: Speech clear, face symmetrical, GCS 14. Psych: Alert and oriented to person only and confused to time, place, and situation. Patient is very calm and cooperative. Assessment and Plan of Care: Covid 19 virus infection Left-sided pneumonia with pleural effusion Acute respiratory failure with hypoxia secondary to COVID 19 pneumonia -Oxygenation to be administered and titrated as needed to maintain SPO2 equal to or greater than 90% -Telemetry monitoring. -Continue trending inflammatory markers -Encourage Incentive Spirometry 10-15x hourly while awake -Steroids: Decadron 6 mg daily -Continue vitamin C, Vitamin D, and Zinc. -Pulmonology following, appreciate further recommendations. -DVT prophylaxis with Eliquis -Strict Droplet plus Contact precautions Enterococcus faecalis UTI -Continue daily medication regimen with Unasyn 3 g every 6 hours Advanced cognitive impairment resulting from underlying Alzheimer's dementia aggravated by current infection Acute on chronic medical debility Poor oral intake -Provide safe and supportive care with redirection as needed. -Fall precautions -PT/OT -Continue Namenda 10 mg twice daily. -Continue gentle hydration with D5.45 at 75 mL's per hour. -Consult dietitian secondary to poor oral intake Vitamin B12 deficiency -Continue daily medication regimen with 1000 g daily Chronic persistent atrial fibrillation -Continue anticoagulation with Eliquis along with Cardizem 240 mg daily. CODE STATUS: DO NOT RESUSCITATE/DO NOT INTUBATE DVT prophylaxis: Eliquis Discussed with: Patient and RN Anticipated discharge date: Clinical course to determine, possibly tomorrow pending acceptance to SNF and insurance authorization Anticipated discharge place: Family requesting SNF placement would like [facility] or [facility] A total of 40 minutes was spent on the care of this complex patient more than 50% of the time was spent in counseling and care coordination. Objective - Vital Signs Vital signs: Vital Signs Temp 97.5 F L 07/15/21 14:24 Pulse 64 07/15/21 14:24 Resp 17 07/15/21 14:24 BP 101/69 07/15/21 14:24 Pulse Ox 94 L 07/15/21 14:24 Intake & Output 07/14/21 07/15/21 07/15/21 18:59 06:59 18:59 Intake Total 228 Output Total 675 510 Balance -447 -510 Intake: Oral 228 Output: Urine 675 510 Other: Voiding Method Indwelling Catheter Indwelling Catheter Indwelling Catheter - Labs CBC & Chem 7: 07/15/21 03:21 07/15/21 03:21 Labs: Abnormal Lab Results - Last 24 Hours (Table) 07/14/21 07/15/21 07/15/21 Range/Units 20:56 03:21 03:21 Hct 46.2 H (34.0-46.0) % MPV 13.0 H (9.5-12.2) fL Immature Gran # 0.11 H (0.00-0.04) X 10*3/uL Lymphocytes # 0.5 L 0.60 L (1.0-4.8) k/uL Eosinophils # 0 L (0.04-0.35) X 10*3/uL D-Dimer 3.57 H (<0.60) mg/L FEU Sodium (135-145) mmol/L BUN/Creatinine Ratio (12.00-20.00) Ratio Glucose (70-110) mg/dL Calcium (8.7-10.3) mg/dL Conjugated Bilirubin (0.20-0.40) mg/dL ALT (8-44) U/L Total Protein (6.2-8.2) g/dL Albumin (3.8-4.9) g/dL Albumin/Globulin Ratio (1.60-3.17) g/dL 07/15/21 Range/Units 03:21 Hct (34.0-46.0) % MPV (9.5-12.2) fL Immature Gran # (0.00-0.04) X 10*3/uL Lymphocytes # (1.0-4.8) k/uL Eosinophils # (0.04-0.35) X 10*3/uL D-Dimer (<0.60) mg/L FEU Sodium 133 L (135-145) mmol/L BUN/Creatinine Ratio 26.31 H (12.00-20.00) Ratio Glucose 125 H (70-110) mg/dL Calcium 8.4 L (8.7-10.3) mg/dL Conjugated Bilirubin <0.20 L (0.20-0.40) mg/dL ALT 45 H (8-44) U/L Total Protein 5.5 L (6.2-8.2) g/dL Albumin 2.8 L (3.8-4.9) g/dL Albumin/Globulin Ratio 1.05 L (1.60-3.17) g/dL Microbiology - Last 24 Hours (Table) 07/10/21 18:55 Blood Culture - Preliminary Blood No Growth after 96 hours 07/10/21 18:40 Blood Culture - Preliminary Blood No Growth after 96 hours <Jeannie Yanez - Last Filed: 07/15/21 19:08> Subjective Joon Callahan NP rendered care for this patient independently, reviewed the findings and plan as documented in the note above. I did not physically speak with or examine the patient on this date. Objective - Vital Signs Vital signs: Vital Signs Temp 97.5 F L 07/15/21 17:42 Pulse 62 07/15/21 17:42 Resp 18 07/15/21 17:42 BP 123/82 07/15/21 17:42 Pulse Ox 93 L 07/15/21 17:42 Intake & Output 07/15/21 07/15/21 07/16/21 06:59 18:59 06:59 Intake Total 900 Output Total 510 290 Balance -510 610 Intake: Intake, IV Titration 700 Amount Ampicillin-Sulbactam 3 gm 100 In Sodium Chloride 0.9% 100 ml @ 200 mls/hr IVPB Q6HR [facility] Rx#:[id number] Dextrose 5%-0.45% NaCl 1, 600 000 ml @ 75 mls/hr IV . [id number] [facility] Rx#:[id number] Oral 200 Output: Urine 510 290 Other: Voiding Method Indwelling Catheter Indwelling Catheter - Labs CBC & Chem 7: 07/15/21 03:21 07/15/21 03:21 Labs: Abnormal Lab Results - Last 24 Hours (Table) 07/14/21 07/15/21 07/15/21 Range/Units 20:56 03:21 03:21 Hct 46.2 H (34.0-46.0) % MPV 13.0 H (9.5-12.2) fL Immature Gran # 0.11 H (0.00-0.04) X 10*3/uL Lymphocytes # 0.5 L 0.60 L (1.0-4.8) k/uL Eosinophils # 0 L (0.04-0.35) X 10*3/uL D-Dimer 3.57 H (<0.60) mg/L FEU Sodium (135-145) mmol/L BUN/Creatinine Ratio (12.00-20.00) Ratio Glucose (70-110) mg/dL Calcium (8.7-10.3) mg/dL Conjugated Bilirubin (0.20-0.40) mg/dL ALT (8-44) U/L Total Protein (6.2-8.2) g/dL Albumin (3.8-4.9) g/dL Albumin/Globulin Ratio (1.60-3.17) g/dL 07/15/21 Range/Units 03:21 Hct (34.0-46.0) % MPV (9.5-12.2) fL Immature Gran # (0.00-0.04) X 10*3/uL Lymphocytes # (1.0-4.8) k/uL Eosinophils # (0.04-0.35) X 10*3/uL D-Dimer (<0.60) mg/L FEU Sodium 133 L (135-145) mmol/L BUN/Creatinine Ratio 26.31 H (12.00-20.00) Ratio Glucose 125 H (70-110) mg/dL Calcium 8.4 L (8.7-10.3) mg/dL Conjugated Bilirubin <0.20 L (0.20-0.40) mg/dL ALT 45 H (8-44) U/L Total Protein 5.5 L (6.2-8.2) g/dL Albumin 2.8 L (3.8-4.9) g/dL Albumin/Globulin Ratio 1.05 L (1.60-3.17) g/dL Microbiology - Last 24 Hours (Table) 07/10/21 18:55 Blood Culture - Preliminary Blood No Growth after 96 hours 07/10/21 18:40 Blood Culture - Preliminary Blood No Growth after 96 hours
[2021-07-15] MEDS: ACETAMINOPHEN TAB 325 MG TAB PO PRN (20:01)
[2021-07-16] MEDS: AMPICILLIN-SULBACTAM 3 GM in SODIUM CHLORIDE 0.9% 100 ML IVPB SCH ×2 (05:25→12:26)
[2021-07-16] MEDS: ASCORBIC ACID 500 MG TAB PO SCH (08:24)
[2021-07-16] MEDS: CITALOPRAM HYDROBROMIDE 20 MG TAB PO SCH (08:24)
[2021-07-16] MEDS: MEMANTINE 10 MG TAB PO SCH (08:24)
[2021-07-16] MEDS: ZINC SULFATE 220 MG CAP PO SCH (08:24)
[2021-07-16] MEDS: DILTIAZEM CD 240 MG CAP.ER.24H PO SCH (08:24)
[2021-07-16] MEDS: dexAMETHasone 2 MG TAB PO SCH (08:24)
[2021-07-16] MEDS: CHOLECALCIFEROL 25 MCG (1000 IU) TABLET PO SCH (08:24)
[2021-07-16] MEDS: CALCIUM CARB-VIT D 500 MG-5 MCG TAB PO SCH (08:24)
[2021-07-16] MEDS: CYANOCOBALAMIN 500 MCG TAB PO SCH (08:24)
[2021-07-16] MEDS: NYSTATIN 100,000 UNIT/GM POWD 15 GM TOPICAL SCH (08:25)
[2021-07-16 09:50] LABS: Basophils # (A) 0.1 k/uL (0-0.2); Basophils % (A) 1 %; Eosinophils % (A) 0 %; Lymphocytes # (A) 0.7 k/uL (1.0-4.8); Lymphocytes % (A) 7 %; MCH 30.3 pg (25.0-35.0); MCV 94.6 fL (80.0-100.0); Mean Platelet Volume 10.7; Monocytes # (A) 0.6 k/uL (0-1.0); Monocytes % (A) 6 %; Neutrophils # (A) 8.4 k/uL (1.3-7.7); Neutrophils % (A) 86 %; Platelet Count 209 k/uL (150-450); RBC 4.97 m/uL (3.80-5.40); RDW 12.7 % (11.5-15.5); WBC 9.9 k/uL (3.8-10.6)
[2021-07-16 10:01] LABS: ALT 30 U/L (4-34); AST 22 U/L (14-36); African American GFR (CKD) >90 (>60 ml/min/1.73 sqM); Albumin 2.4 g/dL (3.5-5.0); Albumin/Globulin Ratio 0.8; Alkaline Phosphatase 53 U/L (38-126); Anion Gap 0 mmol/L; Blood Urea Nitrogen 21 mg/dL (7-17); Calcium 8.1 mg/dL (8.4-10.2); Carbon Dioxide 27 mmol/L (22-30); Chloride 103 mmol/L (98-107); Globulin 2.9 g/dL; Glucose 146 mg/dL (74-99); Magnesium 1.9 mg/dL (1.6-2.3); Non-African American GFR(CKD) 82 (>60 ml/min/1.73 sqM); Potassium 3.7 mmol/L (3.5-5.1); Sodium 130 mmol/L (137-145); Total Bilirubin 0.6 mg/dL (0.2-1.3); Total Protein 5.3 g/dL (6.3-8.2)
--- NOTE | 2021-07-16 11:57 | P.PN ---
Subjective Progress Note Date: 07/16/21 Principal diagnosis: COVID-19 infection On 07/16/2021 patient seen in follow-up on medical surgical floor, she is pleasantly confused, she is a poor historian, she knows she is in the hospital, but could not correctly name the month or the year. Appears to be in no acute distress, breathing comfortably, room air pulse ox is 94%. Her chest x-ray from yesterday shows continued moderate left pleural effusion with adjacent atelectasis. Vital signs have been stable, she has no specific complaints, lung sounds reveal diminished breath sounds at the left base, no crackles or wheezing appreciated, no comparative chest pain, no cough. Today's labs have been reviewed, white blood cell count is 9.9, hemoglobin is 15, sodium is 1:30, depressive electrolytes were unremarkable, BUN is 21 creatinine 0.62. Objective - Vital Signs Vital signs: Vital Signs Temp 97.7 F 07/16/21 10:21 Pulse 68 07/16/21 10:21 Resp 14 07/16/21 10:21 BP 105/68 07/16/21 10:21 Pulse Ox 94 L 07/16/21 10:21 Intake & Output 07/15/21 07/16/21 07/16/21 18:59 06:59 18:59 Intake Total 900 200 Output Total 290 290 Balance 610 -290 200 Intake: Intake, IV Titration 700 Amount Ampicillin-Sulbactam 3 gm 100 In Sodium Chloride 0.9% 100 ml @ 200 mls/hr IVPB Q6HR [facility] Rx#:[id number] Dextrose 5%-0.45% NaCl 1, 600 000 ml @ 75 mls/hr IV . [id number] [facility] Rx#:[id number] Oral 200 200 Output: Urine 290 290 Other: Voiding Method Indwelling Catheter Indwelling Catheter Indwelling Catheter - Exam GENERAL EXAM: Alert, pleasantly confused, poor historian, 85-year-old white female on room air with a pulse ox of 94% comfortable in no apparent distress. HEAD: Normocephalic/atraumatic. EYES: Normal reaction of pupils, equal size. Conjunctiva pink, sclera white. NOSE: Clear with pink turbinates. THROAT: No erythema or exudates. NECK: No masses, no JVD, no thyroid enlargement, no adenopathy. CHEST: No chest wall deformity. Symmetrical expansion. LUNGS: Equal air entry with slightly diminished breath sounds at the left base, no crackles, no rhonchi or wheezing CVS: Regular rate and rhythm, normal S1 and S2, no gallops, no murmurs, no rubs ABDOMEN: Soft, nontender. No hepatosplenomegaly, normal bowel sounds, no guarding or rigidity. EXTREMITIES: No clubbing, no edema, no cyanosis, 2+ pulses and upper and lower extremities. MUSCULOSKELETAL: Muscle strength and tone normal. SPINE: No scoliosis or deformity SKIN: No rashes CENTRAL NERVOUS SYSTEM: Alert and oriented -2. No focal deficits, tone is normal in all 4 extremities. PSYCHIATRIC: Alert and oriented -2. Appropriate affect. Intact judgment and insight. - Labs CBC & Chem 7: 07/16/21 09:26 07/16/21 09:26 Labs: Abnormal Lab Results - Last 24 Hours (Table) 07/16/21 07/16/21 Range/Units 09:26 09:26 Hct 47.0 H (34.0-46.0) % Neutrophils # 8.4 H (1.3-7.7) k/uL Lymphocytes # 0.7 L (1.0-4.8) k/uL Sodium 130 L (137-145) mmol/L BUN 21 H (7-17) mg/dL Glucose 146 H (74-99) mg/dL Calcium 8.1 L (8.4-10.2) mg/dL Total Protein 5.3 L (6.3-8.2) g/dL Albumin 2.4 L (3.5-5.0) g/dL Microbiology - Last 24 Hours (Table) 07/10/21 18:55 Blood Culture - Preliminary Blood No Growth after 120 hours 07/10/21 18:40 Blood Culture - Preliminary Blood No Growth after 120 hours Assessment and Plan Plan: Assessment: #1. Altered mental status related to urinary tract infection, improved. #2. Acute urinary tract infection related to enterococcus faecalis #3. COVID-19 infection, without pulmonary symptoms, patient's chest x-ray showing left pleural effusion with adjacent atelectasis, not typical for COVID- 19 pneumonia. Vaccination status is not known. Currently continues on supportive treatment with multivitamins. Not a candidate for Remdesivir #4. Left lower lobe infiltrate/pleural effusion #5. History of atrial fibrillation on Eliquis #6. History of permanent pacemaker placement #7. History of dementia #8. History of CAD Plan: Patient denies any shortness of breath or cough No fever or chills less than 7 stable She remains on room air Patient is covered with antibiotics for a urinary tract infection Yesterday's chest x-ray showed left lower lobe infiltrate/pleural effusion the patient denies any pulmonary symptoms Increase activity as tolerated Currently discharge planning is in progress for placement into local ECF, possibly [facility] From pulmonary perspective she can be considered for discharge to the ECF once the arrangements are completed I performed a history & physical examination of the patient and discussed their management with my nurse practitioner, Pao Vega. I reviewed the nurse practitioner's note and agree with the documented findings and plan of care. Lung sounds are positive for dim breath sounds at the left base throughout the lung paez. The findings and the impression was discussed with the patient. I attest to the documentation by the nurse practitioner. Time with Patient: Less than 30
--- NOTE | 2021-07-16 12:51 | CDI ---
Documentation Clarification Form Date: 07/16/2021 12:29:09 PM From: Chely Vora RN CCDS Admit Date: 07/11/2021 01:25:00 PM Patient Name: Estrellita Cormier V Visit Number: [id number] Discharge Date: ATTENTION: The Clinical Documentation Specialists (CDI) and [facility] Coding Staff appreciate your assistance in clarifying documentation. Please respond to the clarification below the line at the bottom and electronically sign. The CDI & [facility] Coding staff will review the response and follow-up if needed. Please note: Queries are made part of the Legal Health Record. If you have any questions, please contact the author of this message via ITS. Dr. Chanell Jack Your patient has the documented symptom of Altered Mental Status 07/11, H&P and 07/12 07/16, Medicine progress notes . Additional clarification regarding the etiology/cause of this symptom is requested. History/Risk Factors: 85-year-old female presents to the ED for generalized weakness and altered mental status. Medical History: HTN. Clinical Indicators: Patient admitted with COVID 19; Pneumonia and UTI. VSS 07/10: B/P 119/73; HR 80; Temp 98.0F Oral; RR 20; SpO2 91% room air. Labs: UA 07/10: Blood Large; Leukocyte esterase >182; Coronavirus (pcr) Detected A; D-dimer 2.08; Calcium 8.1. Urine Culture 07/10: Enterococcus faecalis CXR 07/10: Left Pleural Effusion and left lower lobe pneumonia. CT 07/10: Cerebral atrophy and chronic small vessel ischemia. Pulmonary Note 07/16: Altered mental status related to enterococcus faecalis Treatment: 07/10 and d/cd 07/10 0.9ns IV 75cc/hr; 07/11 to current Dextrose 5% ns IV 75cc/hr; 07/10 Decadron 6mg IVP x 1; 07/12 to current Hexadrol 6mg PO Daily; 07/11 to current Vitamin B-12 1,000mcg PO Daily; 07/11 Vitamin D3 50mcg PO Daily; 07/10 Rocephin 2m IVPB x1; 07/11 07/12 Rocephin 1gm IVPB Q12H; 07/14 / d/cd Rocephin 1gm IVPB Q24H; 07/10 Azithromycin 500mg IVPB x 1; 07/14 to current Ampicillin 3gm IVPB Q6HR; 07/11 current Vitamin C 500mg PO Daily. Please clarify the etiology of the symptom of Altered Mental Status: [x] Metabolic Encephalopathy due to UTI and dehydration. [ ] Other condition (please specify) [ ] Unable to determine (Template Last Revised: June 2020) MTDD
[2021-07-16] MEDS ORDERED: APIXABAN 2.5 MG TABLET PO SCH (13:30)
[2021-07-16] MEDS: DEXTROSE 5%-0.45% NACL 1,000 ML IV SCH (13:30)
--- NOTE | 2021-07-16 13:53 | P.DS ---
<Joon Callahan - Last Filed: 07/16/21 13:54> Providers Expected date of discharge: 07/16/21 Hospital Course: Discharge Diagnosis: Covid 19 virus infection Left-sided pneumonia with pleural effusion Acute respiratory failure with hypoxia secondary to COVID 19 pneumonia Enterococcus faecalis UTI Hematuria, follow-up with repeat CBC in 3 days. At this time we are continuing with anticoagulation as hemoglobin has remained stable 7 days. Advanced cognitive impairment resulting from underlying Alzheimer's dementia aggravated by current infection with Covid 19 virus and UTI Acute on chronic medical debility Poor oral intake, Lasix discontinued Hyponatremia, follow up with repeat BMP in 3 days Vitamin B12 deficiency, Continue daily medication regimen with 1000 g daily Chronic persistent atrial fibrillation, Continue anticoagulation with Eliquis along with Cardizem 240 mg daily. Hospital Course: Patient is a very pleasant 85-year-old female with a past medical history of CAD with pacemaker, chronic persistent atrial fibrillation on anticoagulation with Eliquis, hypertension, and dementia. She presented to the hospital on 07/11/21 with a chief complaint of alteration in mental status and dehydration. CT head and cervical spine was completed showing cerebral atrophy and chronic small vessel ischemia with no acute intercranial or cervical abnormalities. EKG consistent with atrial fibrillation. Patient was subsequently diagnosed with Covid 19 virus infection and it is unclear whether or not patient received vaccinations. Chest x-ray revealing a left pleural effusion and left lower lobe pneumonia. Pro-calcitonin was negative at 0.04. ProBNP slightly elevated at 2160. Troponins were trended 3 at less than 0.012. Inflammatory markers were elevated with d-dimer 2.08, CRP of 2.4, and LDH of 602. Urinalysis positive for blood and infection. Patient admitted under our services for treatment of Covid 19 virus infection and UTI. Urine culture positive for Enterococcus faecalis, IV antibiotics changed to Unasyn to better coverage. Blood culture showing no growth after 120 hours. Patient continued with hematuria throughout hospitalization, however hemoglobin remained stable at greater than 137 days of closely monitoring. Patient to continue with anticoagulant. Patient is medically stable, at this time plans for discharge to assisted facility for continued care and rehabilitation. Patient to continue Decadron 6 mg daily 5 days to total of 10 days of steroid therapy. Patient also being discharged home on Augmentin 875/125 for 4 additional days to total a 7 day treatment course of antibiotics for Enterococcus faecalis UTI. Patient to follow-up outpatient with urology after treatment is completed for UTI and follow with pulmonology. Physical exam: Vital signs reviewed and stable. General: Nontoxic, no distress and appears stated age. Derm: Skin warm and dry, normal coloration for ethnicity. Head: Atraumatic, normocephalic and symmetric. Patient very hard of hearing. Eyes: EOMs intact, no lid lag, and anicteric sclera Mouth: no lip lesions, mucus membranes moist Cardiovascular: Irregularly irregular rhythm, systolic murmur, positive posterior tibial pulses bilaterally, and cap refill < 2 seconds. Lungs: Respirations even, regular, and unlabored on 2 L O2 via nasal cannula. Lungs diminished, no rhonchi, no rales, no wheezing, and no accessory muscle usage. Abdominal: soft, nontender to palpation, no guarding, no appreciable organomegaly Ext: ROM intact. No gross muscle atrophy. Left lower extremity with what appears to be chronic deformity to left knee with left lower extremity left laterally rotated. Neuro: Speech clear, face symmetrical, GCS 14. Psych: Alert and oriented to person only and confused to time, place, and situation. Patient is very calm and cooperative. A total of 40 minutes of time were spent preparing this complex discharge summary. Patient Condition at Discharge: Stable Plan - Discharge Summary Discharge Rx Participant: Yes New Discharge Prescriptions: New Amoxic-Pot Clav 875-125Mg [Augmentin 875-125] 1 tab PO Q12HR 4 Days #8 tab dexAMETHasone ORAL [Hexadrol] 6 mg PO DAILY 5 Days #5 tab Albuterol Inhaler [Ventolin Hfa Inhaler] 2 puff INHALATION RT-Q6H PRN gm PRN Reason: Shortness Of Breath Or Wheezing Acetaminophen Tab [Tylenol] 650 mg PO Q4HR PRN tab PRN Reason: Fever>101 Continue Zinc 50 mg PO DAILY Cranberry Fruit Extract [Cranberry] 500 mg PO DAILY Aspirin EC [Ecotrin Low Dose] 81 mg PO DAILY Ascorbic Acid [Vitamin C] 250 mg PO DAILY Memantine [Namenda] 10 mg PO BID Cholecalciferol [Vitamin D3 (25 Mcg = 1000 Iu)] 50 mcg PO DAILY Calcium Carbonate/Vitamin D3 [Calcium 600-D3 20 mcg (800 Unit)] 1 tab PO DAILY Apixaban [Eliquis] 2.5 mg PO BID Diltiazem Cd [Cardizem CD] 240 mg PO DAILY Citalopram Hydrobromide [CeleXA] 20 mg PO DAILY Nystatin 100,000 Unit/gm Powd [Mycostatin Powder] 1 applic TOPICAL BID Cyanocobalamin (Vitamin B-12) [Vitamin B-12] 1,000 mcg PO DAILY Discontinued Furosemide [Lasix] 40 mg PO DAILY Doxycycline Hyclate 100 mg PO BID Discharge Medication List Apixaban [Eliquis] 2.5 mg PO BID 07/10/21 [History] Ascorbic Acid [Vitamin C] 250 mg PO DAILY 07/10/21 [History] Aspirin EC [Ecotrin Low Dose] 81 mg PO DAILY 07/10/21 [History] Calcium Carbonate/Vitamin D3 [Calcium 600-D3 20 mcg (800 Unit)] 1 tab PO DAILY 07/10/21 [History] Cholecalciferol [Vitamin D3 (25 Mcg = 1000 Iu)] 50 mcg PO DAILY 07/10/21 [History] Citalopram Hydrobromide [CeleXA] 20 mg PO DAILY 07/10/21 [History] Cranberry Fruit Extract [Cranberry] 500 mg PO DAILY 07/10/21 [History] Cyanocobalamin (Vitamin B-12) [Vitamin B-12] 1,000 mcg PO DAILY 07/10/21 [History] Diltiazem Cd [Cardizem CD] 240 mg PO DAILY 07/10/21 [History] Memantine [Namenda] 10 mg PO BID 07/10/21 [History] Nystatin 100,000 Unit/gm Powd [Mycostatin Powder] 1 applic TOPICAL BID 07/10/21 [History] Zinc 50 mg PO DAILY 07/10/21 [History] Acetaminophen Tab [Tylenol] 650 mg PO Q4HR PRN tab 07/16/21 [Rx] Albuterol Inhaler [Ventolin Hfa Inhaler] 2 puff INHALATION RT-Q6H PRN gm 07/16/21 [Rx] Amoxic-Pot Clav 875-125Mg [Augmentin 875-125] 1 tab PO Q12HR 4 Days #8 tab 07/16/21 [Rx] dexAMETHasone ORAL [Hexadrol] 6 mg PO DAILY 5 Days #5 tab 07/16/21 [Rx] Follow up Appointment(s)/Referral(s): Oliverio Ruiz MD [STAFF PHYSICIAN] - 1 Week Jhonatan Knight DO [Doctor of Osteopathic Medicine] - 1 Week Walker Calle MD [Primary Care Provider] - 1-2 days Ambulatory/Diagnostic Orders: Basic Metabolic Panel [LAB.AMB] Location: None Selected Complete Blood Count w/diff [LAB.AMB] Time Frame: 3 Days, Location: None Selected Activity/Diet/Wound Care/Special Instructions: Activity: As tolerated. Take breaks as needed. Diet: Heart healthy and carb consistent diet. Avoid salts, or foods with hidden salts such as canned or boxed foods and frozen dinners. Extra salt makes your heart work harder and traps the fluid in your body for longer. Special Instructions: Take all of your medications as directed and remember to keep all of your doctor's appointments and follow-up as needed. Follow-up with urology outpatient once treatment course is completed for enterococcus faecalis UTI. Patient does have noted hematuria, Eliquis is to be continued at this time as hemoglobin has remained very stable. Patient sent with prescription for repeat hemoglobin in 3 days for continued monitoring. Thank you for allowing us to participate in your care, it was truly a pleasure having you for our patient!!! Discharge Disposition: TRANSFER TO SNF/ECF <Chanell Jack - Last Filed: 07/16/21 16:36> Providers Date of admission: 07/11/21 13:25 Attending physician: Jeannie Yanez DO Consults: 07/12/21 17:29 Consult Physician Routine Consulting Provider: Jhonatan Knight Consult Reason/Comments: Pneumonia Do you want consulting provider notified?: Yes 07/13/21 06:25 Consult Physician Routine Consulting Provider: Oliverio Ruiz Consult Reason/Comments: blood in lr catheter Do you want consulting provider notified?: Yes, Notify in am 07/14/21 21:16 Consult Physician Stat Consulting Provider: Oliverio Ruiz Consult Reason/Comments: Increased blood in urinary cathether Do you want consulting provider notified?: Yes Primary care physician: Walker Calle [facility] Course: I reviewed the documentation as provided by the PORFIRIO above, who is the original author of this note. I agree with the documented assessment and plan, with the following changes: None
[2021-07-16 15:51] LABS: Glucose,Whole Blood 266 mg/dL (75-99)
[2021-07-16 16:27] VITALS: BP 102/66; PULSE 62; RESP 16; TEMP 97.8
== END 2021-07-16 17:32 | DRG 177 ==
LOC: EC 15:42 → 4SSUR 19:30 → OBSVTOIN 07-11 13:25 → 4SSUR 07-11 15:26
PROVIDERS: ADMIT Internal Medicine; ATTEND Internal Medicine
DX: U07.1 COVID-19 (principal); J12.82 Pneumonia due to coronavirus disease 2019; J96.01 Acute respiratory failure with hypoxia; J91.8 Pleural effusion in other conditions classified elsewhere; J98.11 Atelectasis; I48.19 Other persistent atrial fibrillation; E87.1 Hypo-osmolality and hyponatremia; E86.0 Dehydration; N30.91 Cystitis, unspecified with hematuria; I25.10 Atherosclerotic heart disease of native coronary artery without angina pectoris; I10 Essential (primary) hypertension; G30.9 Alzheimer's disease, unspecified; F32.A Depression, unspecified; F02.80 Dementia in other diseases classified elsewhere, unspecified severity, without behavioral disturbance, psychotic disturbance, mood disturbance, and anxiety; E53.8 Deficiency of other specified B group vitamins; B95.2 Enterococcus as the cause of diseases classified elsewhere; Z66 Do not resuscitate; Z79.01 Long term (current) use of anticoagulants; Z79.82 Long term (current) use of aspirin; Z79.899 Other long term (current) drug therapy; Z95.0 Presence of cardiac pacemaker; Z99.3 Dependence on wheelchair; R53.81 Other malaise
CPT/HCPCS: 36415; 70450; 71045; 72125; 80048; 80053; 80076; 81001; 82728; 83605; 83615; 83735; 83880; 84100; 84145; 84443; 84484; 85025; 85027; 85379; 85384; 86140; 87040; 87077; 87086; 87186; 87635; 93005; 94760; 96374; 99285